=== PATIENT | male | born 1955 | race Caucasian/White ===

== ENCOUNTER → 2016-09-29 | Outpatient (CLI) | payer OTHER ==
[~2016-09-29] MED LIST: ACET300T2 PO; AMLO-110 PO; AMT50 PO; ASPI81TA28 PO; CLOP1TAB15 PO; CYCL10TA6 PO; METO25TA3 PO; NITRO SPRAY SL; ONDA4TAB10 SL; OXYC1TAB3 PO; RANI150T3 PO; ROSU20TA PO
== END | disposition home or self-care (01) ==
LOC: C.LABSPEC 17:49
PROVIDERS: ATTEND Urology
DX: N20.0 Calculus of kidney (principal)

== ENCOUNTER → 2016-11-29 | Outpatient (CLI) | payer OTHER ==
--- NOTE | 2016-11-29 10:24 | DIAGNOSTIC IMAGING REPORT ---
CHEST 2 VIEWS ROUTINE CLINICAL HISTORY: R93.8 nodule COMPARISON STUDY: 08/03/2015 FINDINGS: The bones soft tissues and hemidiaphragms are normal. The cardiomediastinal silhouette is normal. The lungs are clear. The pulmonary vasculature is normal. Benign calcified granuloma right base. IMPRESSION: Chronic change. No acute process. Electronically signed by: Ra Westbrook M.D. 11/29/2016 10:23 AM Dictated Date/Time: 11/29/2016 10:19 AM
== END | disposition home or self-care (01) ==
LOC: C.RAD 09:38
PROVIDERS: ATTEND Family Medicine
DX: R93.8 Abnormal findings on diagnostic imaging of other specified body structures (principal)

== ENCOUNTER → 2017-06-16 | Outpatient (CLI) | payer OTHER ==
[~2017-06-16] MED LIST changes: -ONDA4TAB10 SL; -OXYC1TAB3 PO
--- NOTE | 2017-06-16 12:43 | DIAGNOSTIC IMAGING REPORT ---
SACRUM COCCYX MIN 2 VIEWS CLINICAL HISTORY: Sacral pain. COMPARISON STUDY: CT of the abdomen and pelvis August 30, 2016. FINDINGS: Note is made of interspinous process spacers at the L3-L4 and L4-L5 levels. Sacroiliac joints are intact. There is no fracture or osseous lesion within the sacrum or coccyx. IMPRESSION: No acute fracture within the sacrum or coccyx. Electronically signed by: Chase Cain M.D. 06/16/2017 12:42 PM Dictated Date/Time: 06/16/2017 12:35 PM
--- NOTE | 2017-06-16 13:11 | DIAGNOSTIC IMAGING REPORT ---
LUMBAR SPINE 5 VIEWS CLINICAL HISTORY: Low back pain. FINDINGS: Five views of the lumbar spine are compared to study dated 04/20/2007. The skeletal structures are osteopenic. There is no radiographic evidence of fracture or malalignment. Vertebral body height and alignment are maintained throughout the lumbar spine. Postoperative change is seen involving the spinous processes from L3 to L5. The transverse processes are intact. There is no evidence of spondylolysis. Anterior osteophytes are seen throughout. Mild facet arthropathy is seen in the lower lumbar region. Mild multilevel degenerative disc space narrowing is noted. The bony pelvis is intact as imaged. There is atherosclerotic calcification of the abdominal aorta. No bowel obstruction is seen. Pelvic phleboliths are observed. IMPRESSION: 1. No acute bony abnormality is seen in the lumbar spine. 2. Osteopenia with postoperative and mild degenerative change as above. Dictated: 06/16/2017 12:43 PM Transcribed: 06/16/2017 1:11 PM Tami Electronically signed by: Shamir De La Rosa M.D. 06/16/2017 1:23 PM Dictated Date/Time: 06/16/2017 12:43 PM
== END | disposition home or self-care (01) ==
LOC: C.RAD1850 10:55
PROVIDERS: ATTEND Family Medicine
DX: M54.5 Low back pain (principal); M53.3 Sacrococcygeal disorders, not elsewhere classified; M85.88 Other specified disorders of bone density and structure, other site; M89.8X8 Other specified disorders of bone, other site; Z98.890 Other specified postprocedural states

== ENCOUNTER → 2017-08-23 | Outpatient (CLI) | payer OTHER | END | disposition home or self-care (01) | LOC: C.RDSM 12:00 | PROVIDERS: ATTEND Physical Medicine & Rehabilitation Sports Medicine | DX: S54.00XA Injury of ulnar nerve at forearm level, unspecified arm, initial encounter (principal); X58.XXXA Exposure to other specified factors, initial encounter ==

== ENCOUNTER 2019-04-13 10:22 | Inpatient (IN) ==
[2019-04-13] MEDS ORDERED: ONDANSETRON INJ 2 MG/ML 2 ML VIAL IV STA ×2 (10:48→12:45)
[2019-04-13] MEDS ORDERED: MoRPHine SULFATE 4 MG/ML 1 ML CARP\\VIAL IV STA ×4 (10:48→13:25)
[2019-04-13] MEDS ORDERED: SODIUM CHLORIDE 0.9% 1000ML 1,000 ML IV SCH (11:00)
[2019-04-13 11:02] LABS: Appearance Urine Clear (Clear); Bilirubin Urine Negative (Negative); Blood Urine Negative (Negative); Color Urine Yellow; Glucose Urine UA Negative (Negative); Ketones Urine Negative (Negative); Leukocyte Esterase Urine Negative (Negative); Nitrite Urine Negative (Negative); Protein Urine Negative (Negative); Specific Gravity Urine 1.014 (1.000-1.030); Urobilinogen Urine Negative (Negative); pH Urine 5.5 (4.5-7.5)
[2019-04-13 11:05] LABS: Basophils # (auto) 0.03 K/uL (0-0.2); Basophils % (auto) 0.2 %; Eosinophils # (auto) 0.06 K/uL (0-0.5); Eosinophils % (auto) 0.4 %; Hematocrit (blood only) 37.9 % (42-52); Hemoglobin 13.1 g/dL (14.0-18.0); Immature Granulocytes # (auto) 0.05 K/uL (0.00-0.02); Immature Granulocytes % (auto) 0.3 %; Lymphocytes # (auto) 1.02 K/uL (1.2-3.4); Lymphocytes % (auto) 6.2 %; Mean Corpuscular Hgb Conc 34.6 g/dL (32-36); Mean Corpuscular Volume 90.5 fL (80-100); Mean Platelet Volume 9.5 fL (7.4-10.4); Monocytes # (auto) 2.05 K/uL (0.11-0.59); Monocytes % (auto) 12.4 %; Neutrophils # (auto) 13.26 K/uL (1.4-6.5); Neutrophils % (auto) 80.5 %; Platelet Count 233 K/uL (130-400); RDW Coefficient of Variation 12.1 % (11.5-14.5); Red Blood Count 4.19 M/uL (4.7-6.1); White Blood Count 16.47 K/uL (4.8-10.8)
[2019-04-13 11:26] LABS: Alanine Aminotransferase 32 U/L (12-78); Albumin Level 4.1 gm/dl (3.4-5.0); Aspartate Aminotransferase 24 U/L (15-37); BUN Creatinine Ratio 17.5 (10-20); Blood Urea Nitrogen 17 mg/dl (7-18); Carbon Dioxide 26 mmol/L (21-32); Chloride 102 mmol/L (98-107); Est GFR (African American) 92.2; Est GFR (Non-African American) 79.6; Glucose 102 mg/dl (70-99); Potassium 3.7 mmol/L (3.5-5.1); Sodium 136 mmol/L (136-145)
[2019-04-13 11:29] LABS: Albumin Globulin Ratio 1.1 (0.9-2); Alkaline Phosphatase 86 U/L (45-117); Bilirubin,Total 0.8 mg/dl (0.2-1); Globulin 3.9 gm/dl (2.5-4.0)
[2019-04-13] MEDS ORDERED: IOVERSOL 100ml IV PRN (11:49)
--- NOTE | 2019-04-13 12:04 | CT Scan Report ---
ABDOMEN AND PELVIS CT WITH IV CONTRAST CT DOSE: 370.75 mGy.cm HISTORY: LLQ pain, no surgeries, h/o divert/kidney stone TECHNIQUE: Multiaxial CT images of the abdomen and pelvis were performed following the use of intrave nous contrast. A dose lowering technique was utilized adhering to the principles of ALARA. COMPARISON STUDY: Abdomen and pelvis CT 08/30/2016. FINDINGS: The lung bases are clear. No pneumoperitoneum. No pneumatosis. Small hiatus hernia. Old mil d superior endplate compression deformity at L4 remains unchanged. Interspinous device is seen at L3- L4 and L4-L5. The liver, gallbladder, adrenal glands, and spleen are unremarkable. Punctate bilateral renal calculi. There is 6 mm stone within the distal right ureter best seen on image 343. However, n o hydronephrosis. No retroperitoneal lymphadenopathy. Inflammatory change and mild edema surrounding the pancreatic tail. This is consistent with acute pancreatitis. No loculated fluid collections ident ified. Colonic diverticulosis. No evidence for diverticulitis. No bowel wall thickening or obstructio n. Normal appendix.. IMPRESSION: 1. Acute pancreatitis centered at the pancreatic tail. 2. A 6 mm nonobstructing stone within the distal right ureter. 3. Colonic diverticulosis. 4. Small hiatus hernia. Electronically signed by: Bill Redmond M.D. 04/13/2019 12:03 PM
[2019-04-13] MEDS ORDERED: SODIUM CHLORIDE 0.9% 500 ML IV SCH (12:45)
--- NOTE | 2019-04-13 13:03 | History & Physical Report ---
Date of Service April 13, 2019 Assessment & Plan (1) Acute pancreatitis: Patient has leukocytosis and pancreatic inflammation seen on CT scan of the abdomen pelvis. Patient be treated for possible acute pancreatitis. Etiologies are unclear at this time as he is not a significant alcohol user and there is no signs or symptoms of choledocholithiasis or gallstones of any kind. Patient will be given lactated Ringer's parenteral opiates and antiemetics and a clear liquid diet repeat laboratories in the morning (2) CAD (coronary artery disease): Patient be maintained on aspirin 81, metoprolol succinate 50 and amlodipine 5 he has had no recent unstable anginal symptoms and is been exerting himself in the summer he (3) HLD (hyperlipidemia): Patient is typical Zetia and Crestor will be on hold (4) DVT prophylaxis: Lovenox will be used for DVT prevention (5) Dysuria: Given the patient's dysuria earlier in the week urine culture will be sent as a possible examination for his leukocytosis (6) GERD (gastroesophageal reflux disease): Patient is maintained on Zantac (7) Chronic low back pain: Patient is prescription drug monitoring program was checked he typically gets a refill of his Tylenol 3 monthly at 120 pills/month he has been very regular with this although opiates can cause sphincter of Oddi spasm it usually associate with elevation of enzymes which she does not have History of Present Illness Primary Care Provider: Stalin Arrieta, 63-year-old male who presents to the ED with 3 and half days of abdominal pain crampy and left-sided. Patient has a history of kidney stones and diverticulosis and was fearful these were causing the problem. Patient has had no stools over the last 3 days. He said no vomiting but mild nausea and is had a decreased appetite. He said no fevers or chills. In the ER is found to have leukocytosis 16 and pancreatic tail inflammation on CT scan and there. There is no evidence of nephrolithiasis causing an issue (there is a kidney stone on the right not obstructing) and his diverticulosis does not look inflamed. Patient states he was working outside in the heat on Monday prior to admission he attempted to hydrate himself but after working out it flared up his chronic lumbar spine pain and he did have some dysuria and darkened urine which is since cleared. For his lumbar spinal stenosis he is previously had surgery he currently takes daily Tylenol 3 and he is scheduled for an injection in the coming weeks by pain management Patient does not feel he can bear his pain at home and is brought in for possible pancreatitis pain control and antiemetics Allergies Allergy/AdvReac Type Severity Reaction Status Date / Time pantoprazole [From Protonix] AdvReac Intermediate Nausea Unverified 04/13/19 11:03 tramadol AdvReac Intermediate nasuea Unverified 04/13/19 10:52 ibuprofen AdvReac Unknown UPSETS Verified 04/13/19 10:51 STOMACH NSAIDS (Non-Steroidal AdvReac Unknown conflicts Unverified 04/13/19 11:03 Anti-Inflamma with heart condition Home Medications Home Medications Medication Instructions Recorded Confirmed Type aspirin 81 mg PO PM #0 01/23/14 04/13/19 History amlodipine [Norvasc] 5 mg PO QAM #0 tab 08/03/15 04/13/19 History metoprolol succinate [Toprol XL] 50 mg PO PM #30 tab 08/03/15 04/13/19 History nitroglycerin [Nitrolingual] 400 mcg SUBLINGUAL DIRECTED PRN 08/03/15 04/13/19 History #0 acetaminophen-codeine 1 tab PO QID PRN #0 tab 08/30/16 04/13/19 History [Tylenol-Codeine #3] ranitidine HCl [Zantac Maximum 150 mg PO BID #0 tab 08/30/16 04/13/19 History Strength] coQ10 (ubiquinol) 200 mg PO PM 04/13/19 04/13/19 History ezetimibe 10 mg PO QAM 04/13/19 04/13/19 History rosuvastatin [Crestor] 5 mg PO HS 04/13/19 04/13/19 History Past Med/Surg History Medical History Chest pain (Acute) Lumbar stenosis with neurogenic claudication CAD (coronary artery disease) Diverticulitis HLD (hyperlipidemia) Kidney stone Surgical History History of angioplasty (Resolved) History of hernia repair (Resolved) S/P coronary artery stent placement Family History Other Family history non-contributory Social History Feels Safe at Home: Yes Smoking Status: Former smoker Review of Systems Review of Systems: ROS: well nourished well developed. No double vision blurry vision No problems with speech or swallowing No palpitations, chest pain or pressure No Wheezing or breathing issues Left-sided mid and lower quadrant abdominal pain worse with examination crampy dull radiating to his back No burning urine urine frequency or changes in color No focal joint pain or muscle pain No skin rashes or oral lesions No unusual bruising or bleeding Chronic daily back pain without numbness or loss of strength No changes in memory or confusion Physical Exam Physical Exam: The patient appeared well nourished and in moderate discomfort Vital signs as documented. Head exam is unremarkable. normocephalic, atraumatic Neck is without jugular venous distension, thyromegaly, or lymphademopathy Lungs are clear to auscultation and percussion. Cardiac exam reveals Rhythm is regular. First and second heart sounds normal. Abdominal exam reveals normal bowel sounds, no guarding no rebound tenderness to the left side examination of the right side radiates to the left side the pain is in the mid abdomen and he has some left CVA angle tenderness Extremities are nonedematous and both pedal pulses are present Neurologic exam is A&Ox3, no focal deficits, strength is equal bilateral Psychologically seems neither anxious or depressed Skin is warm Dry without bruises or lesions Results & Data Vital Signs (Past 12 Hours) Vital Signs Temp Pulse Pulse Resp BP BP Pulse Ox 04/13/19 12:56 72 20 104/61 96 04/13/19 12:31 72 20 114/66 96 04/13/19 11:29 62 16 114/69 99 04/13/19 11:00 62 20 110/78 99 04/13/19 10:59 62 20 99 04/13/19 10:28 36.6 C 68 20 120/[address] abd/pelvis with iv contrast: 1. Acute pancreatitis centered at the pancreatic tail. 2. A 6 mm nonobstructing stone within the distal right ureter. 3. Colonic diverticulosis. 4. Small hiatus hernia. PG Care Time/CCT Total # of Minutes Spent Total Time Spent with Patient: Total time spent is greater than 50% in coordination of care (as documented) at patient's floor/unit and/or counseling patient: (1) Acute pancreatitis Acute pancreatitis complication: no infection or necrosis Pancreatitis type: unspecified pancreatitis type Qualified Code(s): K85.90 - Acute pancreatitis without necrosis or infection, unspecified
--- NOTE | 2019-04-13 13:39 | Emergency Department Note ---
Entered by Daniel Mcnamara acting as a scribe for Daniel Major MD History of Present Illness General Chief complaint: GI Assessment Stated complaint: REF BY ABDOMINAL/BACK PAIN, BLOOD IN URINE Time Seen by Provider: 04/13/19 10:32 Source: patient History of Present Illness Provider complaint: Abdominal pain Onset (ago): day(s) 2 Location: abdomen Severity: similar to prior episodes Pain Consistency: + other (Waxing and waning) Maximum Pain Intensity: 7 Current Pain Intensity: 7 Relieved By: + none Exacerbated By: + none Associated symptoms: + other (Positive back pain) The patient is a 63 year old male w/ PMHx CAD, HTN, angioplasty, s/p coronary stents, spinal stenosis, kidney stone, diverticulitis and HLD who was referred by the [facility] walk-in clinic presenting to the ED w/ CC of waxing and waning abdominal pain, especially in the LLQ, that started about 2 days ago. The patient rates the pain as a 7/10 and notes nothing seems to make it better or worse. The patient states that he has not moved his bowels for the past 4 days and he is passing gas less than normal. Moreover, the patient has back pain that he notes is more severe than his typical chronic back pain. The patient does have a history of kidney stones and states his symptoms are starting to feel similar. During the past episode the patient was able to pass the stone without needing any procedures. He also mentioned that his urine sample he provided at the walk-in clinic did contain blood. The patient denies any recent trauma, rashes, or history of abdominal surgeries. The patient states that due to his cardiac history he takes daily Aspirin, but no other blood thinners. He sees Dr. Arteaga for cardiology. Home Medications Home Medications Medication Instructions Recorded Confirmed Type aspirin 81 mg PO PM #0 01/23/14 04/13/19 History amlodipine [Norvasc] 5 mg PO QAM #0 tab 08/03/15 04/13/19 History metoprolol succinate [Toprol XL] 50 mg PO PM #30 tab 08/03/15 04/13/19 History nitroglycerin [Nitrolingual] 400 mcg SUBLINGUAL DIRECTED PRN 08/03/15 04/13/19 History #0 acetaminophen-codeine 1 tab PO QID PRN #0 tab 08/30/16 04/13/19 History [Tylenol-Codeine #3] ranitidine HCl [Zantac Maximum 150 mg PO BID #0 tab 08/30/16 04/13/19 History Strength] coQ10 (ubiquinol) 200 mg PO PM 04/13/19 04/13/19 History ezetimibe 10 mg PO QAM 04/13/19 04/13/19 History rosuvastatin [Crestor] 5 mg PO HS 04/13/19 04/13/19 History Allergies Allergy/AdvReac Type Severity Reaction Status Date / Time pantoprazole [From Protonix] AdvReac Intermediate Nausea Unverified 04/13/19 11:03 tramadol AdvReac Intermediate nasuea Unverified 04/13/19 10:52 ibuprofen AdvReac Unknown UPSETS Verified 04/13/19 10:51 STOMACH NSAIDS (Non-Steroidal AdvReac Unknown conflicts Unverified 04/13/19 11:03 Anti-Inflamma with heart condition Past Med/Surg History Family History Other Family history non-contributory Social History Feels Safe at Home: Yes Smoking Status: Former smoker Review of Systems See HPI for pertinent positives & negatives. and A total of 10 systems reviewed and were otherwise negative Physical Exam Vital Signs Vital Signs - 24 hr 04/13/19 10:28 04/13/19 10:59 04/13/19 11:00 Temperature 36.6 C Temperature Source Oral Sepsis Recent Fever Within 48 Hours No Sepsis Action Taken by Nursing No Action Required Pulse Rate 68 62 Pulse Rate [Right Finger] 62 Respiratory Rate 20 20 20 Respiratory Effort / Characteristics Non-Labored Respiratory Depth Normal Normal Blood Pressure 120/63 Blood Pressure [Left Arm] 110/78 Blood Pressure Mean 82 Blood Pressure Mean [Left Arm] 88 Pulse Oximetry 100 99 99 Oxygen Delivery Method Room Air Room Air Room Air 04/13/19 11:29 04/13/19 12:31 04/13/19 12:56 Temperature Temperature Source Sepsis Recent Fever Within 48 Hours Sepsis Action Taken by Nursing Pulse Rate Pulse Rate [Right Finger] 62 72 72 Respiratory Rate 16 20 20 Respiratory Effort / Characteristics Respiratory Depth Normal Blood Pressure Blood Pressure [Left Arm] 114/69 114/66 104/61 Blood Pressure Mean Blood Pressure Mean [Left Arm] 84 82 75 Pulse Oximetry 99 96 96 Oxygen Delivery Method Room Air Room Air Room Air GENERAL: Mildly uncomfortable in appearance, well nourished, NAD, non-toxic. EYE EXAM: Normal conjunctiva. PERRL, no anisocoria and EOM's grossly intact w/o pain. OROPHARYNX: Moist mucus membranes. Grossly normal dentition. NECK: Supple, no nuchal rigidity, no adenopathy, non-tender. No signs of meningismus. LUNGS: Clear to auscultation. Normal chest wall mechanics. HEART: NSR, no MRG. ABDOMEN: Abdomen soft, LLQ pain, LLQ pain with palpation of the RLQ, negative obturator and psoas, normo-active bowel sounds, no masses, no rebound or guarding. BACK: No CVA TTP. SKIN: No rashes and no bruising. UPPER EXTREMITIES: Upper extremities are grossly normal. LOWER EXTREMITIES: No pitting edema. No calf pain. NEURO EXAM: A&O x3, cranial nerves II-XII grossly intact, normal speech, moves all 4 extremities on command w/o issue. Course 1042: Past medical records reviewed. The patient was evaluated in room C09, and a complete history and physical examination were performed. 1215: The patient is going to try drinking peter jannette to see if it exacerbated his abdominal pain. 1245: I reevaluated the patient after he had his peter jannette trial and he is still not feeling well. The patient has agreed to stay in the hospital for further testing and evaluation. 1258: I spoke to Dr. Dixon [facility] Hospitalist about the patient's case. He is going to accept the patient for further evaluation. Consultations Consultation #1: I spoke to Dr. Dixon [facility] Hospitalist about the patient's case. He is going to accept the patient for further evaluation. Time: 12:58 Administered Medications Sodium Chloride (Nss) 500 mls @ 125 mls/hr IV .Q4H SUSAN Stop: 05/13/19 12:44 Last Admin: 04/13/19 12:58 Dose: 125 mls/hr Documented by: [id number] Ioversol (Optiray 320 100ml) 92 ml IV ONCE PRN PRN Reason: Interaction Checking Stop: 04/17/19 11:48 Last Admin: 04/13/19 11:49 Dose: 92 ml Documented by: [id number] Discontinued Medications Sodium Chloride (Nss 1000ml) 1,000 mls @ 999 mls/hr IV .Q1H1M SUSAN Stop: 04/13/19 12:00 Last Infusion: 04/13/19 12:33 Dose: 0 mls/hr Documented by: [id number] Admin: 04/13/19 11:02 Dose: 999 mls/hr Documented by: [id number] Morphine Sulfate (Morphine Sulfate) 4 mg IV NOW STA Stop: 04/13/19 10:49 Last Admin: 04/13/19 11:01 Dose: 4 mg Documented by: [id number] Morphine Sulfate (Morphine Sulfate) 4 mg IV NOW STA Stop: 04/13/19 11:25 Last Admin: 04/13/19 11:28 Dose: 4 mg Documented by: [id number] Morphine Sulfate (Morphine Sulfate) 4 mg IV NOW STA Stop: 04/13/19 12:46 Last Admin: 04/13/19 12:58 Dose: 4 mg Documented by: [id number] Morphine Sulfate (Morphine Sulfate) 4 mg IV NOW STA Stop: 04/13/19 13:26 Last Admin: 04/13/19 13:36 Dose: 4 mg Documented by: [id number] Ondansetron HCl (Zofran) 4 mg IV NOW STA Stop: 04/13/19 10:49 Last Admin: 04/13/19 11:01 Dose: 4 mg Documented by: [id number] Ondansetron HCl (Zofran) 4 mg IV NOW STA Stop: 04/13/19 12:46 Last Admin: 04/13/19 12:57 Dose: 4 mg Documented by: [id number] Medical Decision Making Medical Records Attestation: I reviewed the patient's medical records. Home Medications Current Medication List: was personally reviewed by me Laboratory Data Attestation: I reviewed the patient's lab results. Result diagrams: 04/13/19 10:55 04/13/19 10:55 Lab Results 04/13/19 04/13/19 04/13/19 Range/Units 10:49 10:55 10:55 WBC 16.47 H (4.8-10.8) K/uL RBC 4.19 L (4.7-6.1) M/uL Hgb 13.1 L (14.0-18.0) g/dL Hct 37.9 L (42-52) % MCV 90.5 (80-100) fL MCH 31.3 (25-34) pg MCHC 34.6 (32-36) g/dL RDW Std Deviation 40.0 (36.4-46.3) fL RDW Coeff of Aakash 12.1 (11.5-14.5) % Plt Count 233 (130-400) K/uL MPV 9.5 (7.4-10.4) fL Immature Gran % (Auto) 0.3 % Neut % (Auto) 80.5 % Lymph % (Auto) 6.2 % Harvey % (Auto) 12.4 % Eos % (Auto) 0.4 % Baso % (Auto) 0.2 % Immature Gran # (Auto) 0.05 H (0.00-0.02) K/uL Neut # (Auto) 13.26 H (1.4-6.5) K/uL Lymph # (Auto) 1.02 L (1.2-3.4) K/uL Harvey # (Auto) 2.05 H (0.11-0.59) K/uL Eos # (Auto) 0.06 (0-0.5) K/uL Baso # (Auto) 0.03 (0-0.2) K/uL Sodium 136 (136-145) mmol/L Potassium 3.7 (3.5-5.1) mmol/L Chloride 102 (98-107) mmol/L Carbon Dioxide 26 (21-32) mmol/L Anion Gap 8.0 (3-11) BUN 17 (7-18) mg/dl Creatinine 0.99 (0.6-1.4) mg/dl Est Cr Clr Drug Dosing Not Reportable Est GFR ( Amer) 92.2 Est GFR (Non-Af Amer) 79.6 BUN/Creatinine Ratio 17.5 (10-20) Glucose 102 H (70-99) mg/dl Calcium 9.0 (8.5-10.1) mg/dl Total Bilirubin 0.8 (0.2-1) mg/dl AST 24 (15-37) U/L ALT 32 (12-78) U/L Alkaline Phosphatase 86 (45-117) U/L Total Protein 8.0 (6.4-8.2) gm/dl Albumin 4.1 (3.4-5.0) gm/dl Globulin 3.9 (2.5-4.0) gm/dl Albumin/Globulin Ratio 1.1 (0.9-2) Lipase 148 (73-393) U/L Urine Color Yellow Urine Appearance Clear (Clear) Urine pH 5.5 (4.5-7.5) Ur Specific [place] 1.014 (1.000-1.030) Urine Protein Negative (Negative) Urine Glucose (UA) Negative (Negative) Urine Ketones Negative (Negative) Urine Blood Negative (Negative) Urine Nitrite Negative (Negative) Urine Bilirubin Negative (Negative) Urine Urobilinogen Negative (Negative) Ur Leukocyte Esterase Negative (Negative) Imaging Data Radiologist's Impression: Radiology results as stated below per my review and the radiologist's interpretation: ABDOMEN AND PELVIS CT WITH IV CONTRAST CT DOSE: 370.75 mGy.cm HISTORY: LLQ pain, no surgeries, h/o divert/kidney stone TECHNIQUE: Multiaxial CT images of the abdomen and pelvis were performed following the use of intravenous contrast. A dose lowering technique was utilized adhering to the principles of ALARA. COMPARISON STUDY: Abdomen and pelvis CT 08/30/2016. FINDINGS: The lung bases are clear. No pneumoperitoneum. No pneumatosis. Small hiatus hernia. Old mild superior endplate compression deformity at L4 remains unchanged. Interspinous device is seen at L3-L4 and L4-L5. The liver, gallbladder, adrenal glands, and spleen are unremarkable. Punctate bilateral renal calculi. There is 6 mm stone within the distal right ureter best seen on image 343. However, no hydronephrosis. No retroperitoneal lymphadenopathy. Inflammatory change and mild edema surrounding the pancreatic tail. This is consistent with acute pancreatitis. No loculated fluid collections identified. Colonic diverticulosis. No evidence for diverticulitis. No bowel wall thickening or obstruction. Normal appendix.. IMPRESSION: 1. Acute pancreatitis centered at the pancreatic tail. 2. A 6 mm nonobstructing stone within the distal right ureter. 3. Colonic diverticulosis. 4. Small hiatus hernia. Electronically signed by: Bill Redmond M.D. 04/13/2019 12:03 PM Blood Pressure Blood Pressure Findings: Normal blood pressure MDM Narrative The patient is a 63 year old male w/ PMHx CAD, HTN, angioplasty, s/p coronary stents, spinal stenosis, kidney stone, diverticulitis and HLD who was referred by the [facility] walk-in clinic presenting to the ED w/ CC of waxing and waning abdominal pain, especially in the LLQ, that started about 2 days ago. Differential diagnoses includes but is not limited to gastritis, peptic ulcer disease, GERD, gallbladder disease, pancreatitis, small bowel obstruction, acute coronary syndrome, pericarditis, ischemic bowel, irritable bowel disease, irritable bowel syndrome, appendicitis, diverticulitis, malignancy, hernia, urinary tract infection, torsion, perforation, trauma, infectious. Patient was seen and evaluated the bedside. The patient was complaining some left sided lower abdominal pain. The patient does not have any right-sided abdominal pain. Patient did have questionable blood in urine as an outpatient and was referred here for further evaluation and treatment. The patient does not have any CVA tenderness palpation. The patient did have blood work completed which shows a mild white count. The patient CT does show concern for a nonobstructing left-sided stone that is close to the bladder. It is 6 mm but there is no hydro-. No evidence of blood or infection from the urine. The patient does have concern for possible pancreatitis. Upon reassessment the patient did have epigastric pain. I did discuss the possibility of p.o. trial as well as clear liquids. The patient did attempt this but the patient did have worsening pain and patient was supposed to travel to [place] tomorrow and does not believe that he would be able to do so given his current state. Given this I did discuss the patient with the on-call hospitalist who agreed to further evaluate treat the patient. Patient was admitted to the medicine service. Impression & Plan Acute pancreatitis, Ureterolithiasis, Abdominal pain Discharge Plan Visit Data Chief Complaint: GI Assessment Stated Complaint: REF BY ABDOMINAL/BACK PAIN, BLOOD IN URINE ED Provider: Daniel Major Discharge Problem: Acute pancreatitis, Ureterolithiasis, Abdominal pain Patient Disposition: Being Evaluated by Hospitalist Forms Stand Alone Forms: My [facility] [employer] Prescriptions Prescriptions: No Action aspirin 81 mg Tablet,Delayed Release (Dr/Ec) 81 mg PO PM Qty: 0 RF: 0 metoprolol succinate [Toprol XL] 50 mg Tablet Extended Release 24 Hr 50 mg PO PM Qty: 30 RF: 0 amlodipine [Norvasc] 5 mg Tablet 5 mg PO QAM Qty: 0 RF: 0 nitroglycerin [Nitrolingual] 400 mcg/spray [place],Non-Aerosol 400 mcg sublingual DIRECTED PRN (Reason: Chest Pain) Qty: 0 RF: 0 ranitidine HCl [Zantac Maximum Strength] 150 mg Tablet 150 mg PO BID Qty: 0 RF: 0 acetaminophen-codeine [Tylenol-Codeine #3] 300-30 mg Tablet 1 tab PO QID PRN (Reason: Pain) Qty: 0 RF: 0 ezetimibe 10 mg tablet 10 mg PO QAM RF: 0 rosuvastatin [Crestor] 5 mg tablet 5 mg PO HS RF: 0 coQ10 (ubiquinol) 200 mg Capsule 200 mg PO PM RF: 0 Referrals Referrals: Stalin Arrieta DO [Primary Care Provider] - Discharge Problem: Acute pancreatitis Qualifiers: Pancreatitis type: unspecified pancreatitis type Acute pancreatitis complication: no infection or necrosis Qualified Code(s): K85.90 - Acute pancreatitis without necrosis or infection, unspecified Abdominal pain Qualifiers: Abdominal location: left lower quadrant Qualified Code(s): R10.32 - Left lower quadrant pain The scribe's documentation has been prepared under my direction and personally reviewed by me in its entirety. I confirm that the note above accurately reflects all work, treatment, procedures, and medical decision making performed by me.
[2019-04-13] MEDS ORDERED: LORazepam 0.5 MG/1 ML VIAL IV PRN (14:43)
[2019-04-13] MEDS ORDERED: PROMETHAZINE HCL 12.5 MG in SODIUM CHLORIDE 0.9% 50 ML IV PRN (14:43)
[2019-04-13] MEDS ORDERED: MoRPHine SULFATE 4 MG/ML 1 ML CARP\\VIAL IV PRN (14:43)
[2019-04-13] MEDS ORDERED: MoRPHine SULFATE 2 MG/ML CARP IV PRN (14:43)
[2019-04-13] MEDS ORDERED: NITROGLYCERIN SL 0.4 MG/TAB TAB SL PRN (14:43)
[2019-04-13] MEDS ORDERED: HYDROmorphone INJ 0.5 MG/0.5 ML SYR IV STA (15:28)
[2019-04-13] MEDS ORDERED: HYDROmorphone INJ 1 MG/ML SYRINGE IV PRN (15:29)
[2019-04-13] MEDS ORDERED: HYDROmorphone INJ 0.5 MG/0.5 ML SYR IV PRN (15:29)
[2019-04-13 15:45] LABS: INR 1.1 (0.9-1.1)
[2019-04-13] MEDS: LACTATED RINGER'S 1,000 ML IV SCH ×2 (17:55→22:07)
[2019-04-13] MEDS: OXYCODONE HCL IR 5 MG TAB (IMMEDIATE RELEASE) PO PRN (17:56)
[2019-04-13] MEDS ORDERED: LACTATED RINGER'S 500 ML IV ONE (19:38)
[2019-04-13] MEDS: HYDROmorphone INJ 1 MG/ML SYRINGE IV PRN ×2 (20:31→23:54)
[2019-04-13] MEDS: METOPROLOL SUCC 50MG EXT REL TAB PO SCH (20:34)
[2019-04-13] MEDS: ASPIRIN 81 MG ECTAB PO SCH (20:36)
[2019-04-13] MEDS: ENOXAPARIN INJ 40 MG/0.4 ML SYR SQ SCH (21:08)
[2019-04-13] MEDS: ONDANSETRON INJ 2 MG/ML 2 ML VIAL IV PRN ×2 (22:51→22:52)
[2019-04-14] MEDS: HYDROmorphone INJ 1 MG/ML SYRINGE IV PRN ×3 (05:14→22:49)
[2019-04-14] MEDS: LACTATED RINGER'S 1,000 ML IV SCH ×3 (06:01→19:23)
[2019-04-14 06:47] LABS: Albumin Globulin Ratio 0.9 (0.9-2); Albumin Level 3.7 gm/dl (3.4-5.0); BUN Creatinine Ratio 11.3 (10-20); Calcium 8.9 mg/dl (8.5-10.1); Creatinine Clr Calc Pharmacy 73.5 ml/min; Est GFR (African American) 94.6; Est GFR (Non-African American) 81.6; Globulin 4.1 gm/dl (2.5-4.0); Potassium 3.5 mmol/L (3.5-5.1); Total Protein 7.8 gm/dl (6.4-8.2)
[2019-04-14] MEDS: OXYCODONE HCL IR 5 MG TAB (IMMEDIATE RELEASE) PO PRN ×2 (07:40→20:13)
[2019-04-14] MEDS: AMLODIPINE BESYLATE 5 MG TAB PO SCH (07:41)
[2019-04-14] MEDS: HYDROmorphone INJ 0.5 MG/0.5 ML SYR IV PRN ×2 (10:18→13:23)
[2019-04-14 11:21] LABS: Hematocrit (blood only) 35.8 % (42-52); Hemoglobin 12.2 g/dL (14.0-18.0); Mean Corpuscular Hgb Conc 34.1 g/dL (32-36); Mean Corpuscular Volume 92.5 fL (80-100); Mean Platelet Volume 10.3 fL (7.4-10.4); Platelet Count 233 K/uL (130-400); RDW Coefficient of Variation 12.2 % (11.5-14.5); RDW Standard Deviation 41.5 fL (36.4-46.3); Red Blood Count 3.87 M/uL (4.7-6.1); White Blood Count 17.18 K/uL (4.8-10.8)
[2019-04-14] MEDS ORDERED: POLYETHYLENE (MIRALAX) 17 GM PACK PO PRN (12:17)
--- NOTE | 2019-04-14 13:30 | Hospitalist Progress Note ---
Date of Service April 14, 2019 Assessment & Plan (1) Acute pancreatitis: - Presented with acute abdominal pain; has leukocytosis and acute pancreatitis noted at pancreatic tail but lipase level is WNL. - Does not drink ETOH at home; no evidence of gallstones. - CLD as tolerated; LR at 200 cc/hr. - GI consulted, may require EUS for further evaluation. - Oxycodone, Dilaudid, Tylenol #3 for pain control. - Monitor labs daily -- LFTs are WNL. (2) Leukocytosis: - Possibly related to pancreatitis vs. other. - Monitor CBC w/o diff qAM. (3) Right ureteral stone: - 6 mm nonobstructing stone within distal right ureter noted on CT A/P at admission. - U/a negative; UC is negative (prelim) - Will continue to monitor -- consider non-urgent urology consult on Monday. - Will start Flomax 0.4 mg daily; on IVF at 200 cc/hr. (4) Dysuria: - U/a and UC negative. - No indication for abx; dysuria now improving. (5) Anemia: - Hgb decreased since admission; will continue to monitor. - Consider iron studies for further evaluation. (6) CAD (coronary artery disease): - H/o angioplasty in the 's followed by stent placement 1-2 years ago; does not follow with group marketing vp at [facility], therefore we do not have records. - Continue home ASA 81 mg daily, Amlodipine 5 mg daily, Toprol XL 50 mg qPM as prescribed. - No cardiac symptoms present at this time. (7) HLD (hyperlipidemia): - Hold Zetia and Crestor (possible statin induced pancreatitis?) (8) GERD (gastroesophageal reflux disease): - Zantac BID. (9) Chronic low back pain: - Follows with pain management; on Tylenol #3 at home. - Has follow up with pain management for SI joint injection in near future. - Consider Sphincter of Oddi spasm. (10) Hiatal hernia: - Small hiatal hernia noted on CT. (11) DVT prophylaxis: - Lovenox daily. Dispo: Med/surg; discharge on 04/15/19 pending improvement in abd pain, GI consult and advancement of diet. Supervising Physician Co-Signing Physician Notes PA Supervision Note: I did not personally see or examine the patient today, but I verified all liang points of ERIKA Todd's assessment and plan with the following exceptions/additions: None Subjective Pt. feels well overall today. He did have nausea and mild abd pain this morning after eating breakfast but symptoms quickly resolved. Pain is located in the left side of his abdomen. He also has chronic low back pain, slightly increased since being admitted. Last BM was on Monday. Denies dysuria, hematuria, urinary retention. Review of Systems Review of Systems: All systems reviewed & are unremarkable except as noted in HPI & below Constitutional: no fever, no chills, no fatigue, no weakness and no anorexia Respiratory: no cough, no dyspnea, no dyspnea on exertion and no wheezing Cardiovascular: no chest pain, no palpitations and no edema Gastrointestinal: + abdominal pain, + nausea and + constipation; no vomiting and no diarrhea/loose stools Genitourinary: no dysuria, no difficulty urinating and no hematuria Musculoskeletal: + back pain (Chronic ); no joint pain Integumentary: no non-healing lesions Physical Exam Physical Exam: General: Resting comfortably HEENT: NC/AT; PERRLA with EOMI; [place] conjunctiva, MMM. No erythema of posterior pharynx Neck: Supple and nontender Cardiac: RRR Lungs: CTA bilaterally Abdomen: Bowel normoactive X 4; Tender to deep palpation over left abdomen. Extremities: Warm. No edema present Neuro: No focal weakness Skin: No rash Results & Data Vital Signs (Past 12 Hours) Vital Signs Temp Pulse Resp BP Pulse Ox 04/14/19 07:32 37.1 C 83 20 143/69 H 92 Laboratory Results 04/14/19 04/14/19 04/13/19 Range/Units 05:19 05:17 15:19 WBC 17.18 H (4.8-10.8) K/uL RBC 3.87 L (4.7-6.1) M/uL Hgb 12.2 L (14.0-18.0) g/dL Hct 35.8 L (42-52) % MCV 92.5 (80-100) fL MCH 31.5 (25-34) pg MCHC 34.1 (32-36) g/dL RDW Std Deviation 41.5 (36.4-46.3) fL RDW Coeff of Aakash 12.2 (11.5-14.5) % Plt Count 233 (130-400) K/uL MPV 10.3 (7.4-10.4) fL PT 11.0 (9.0-12.0) Seconds INR 1.1 (0.9-1.1) Sodium 137 (136-145) mmol/L Potassium 3.5 (3.5-5.1) mmol/L Chloride 102 (98-107) mmol/L Carbon Dioxide 27 (21-32) mmol/L Anion Gap 8.0 (3-11) BUN 11 (7-18) mg/dl Creatinine 0.97 (0.6-1.4) mg/dl Est Cr Clr Drug Dosing 73.5 ml/min Est GFR ( Amer) 94.6 Est GFR (Non-Af Amer) 81.6 BUN/Creatinine Ratio 11.3 (10-20) Glucose 93 (70-99) mg/dl Calcium 8.9 (8.5-10.1) mg/dl Total Bilirubin 1.0 (0.2-1) mg/dl AST 19 (15-37) U/L ALT 24 (12-78) U/L Alkaline Phosphatase 83 (45-117) U/L Total Protein 7.8 (6.4-8.2) gm/dl Albumin 3.7 (3.4-5.0) gm/dl Globulin 4.1 H (2.5-4.0) gm/dl Albumin/Globulin Ratio 0.9 (0.9-2) Lipase 63 L (73-393) U/L PG Care Time/CCT Total # of Minutes Spent Total Time Spent with Patient: Total time spent is greater than 50% in coordination of care (as documented) at patient's floor/unit and/or counseling patient: (1) Acute pancreatitis Acute pancreatitis complication: no infection or necrosis Pancreatitis type: unspecified pancreatitis type Qualified Code(s): K85.90 - Acute pancreatitis without necrosis or infection, unspecified
[2019-04-14] MEDS: DOCUSATE SODIUM/SENNA 50/8.6MG TAB PO SCH ×2 (13:33→20:13)
[2019-04-14] MEDS: TAMSULOSIN HCL 0.4 MG CAP PO SCH (13:33)
--- NOTE | 2019-04-14 14:47 | Gastrointestinal Consultation ---
Date of Consultation April 14, 2019 Assessment & Plan (1) Acute pancreatitis: Etiology not clear. CT did not comment on GB--check MRCP for gallstones as etiology. Check triglycerides. ETOH negative. Urine output is above 0.65 mg/kg/hour over the 0.5 mg/kg/hour suggested to make sure perfusion to pancreas adequate to reduce risk of necrotizing pancreatisis. Clears for now. LLQ pain--initially LUQ and tail of pancreas may be more left sided and not epigastric so suspect from pancreatitis--improving normocytic anemia--check B12, folate, ferritin, and Fe sat elevated WBC--presumably from pancreatitis--worse today but clinically better, continue to trend gerd--acid suppression constipation--laxative prn, may have sluggish gut from pancreatitis History of Present Illness Reason for Consultation: pancreatitis Requesting Physician: ERIKA Nicole Attending Physician: Angelina Garcia MD History of Present Illness CC abd pain HPI with patient for H and P. Pt states brother had pancreatitis twice but he does not know reason for it. Pt no history of pancreatiis. Reviewed [facility] EMR and noted EGD 12/05/1718 grade B esophagitis, small HH, no path done. Cable done 11/2017 3 mm rectal polyp path hyperplastic, sigmoid diverticulosisi and random colon path neg. Pt states he was working out in sun and thought was feeling poorly from that. However, he developed LUQ then setlling to L mid to LLQ pain persistent and came to ER. Also no bms for few days versus his normal daily BMs. CT a/p small HH, non obstructing right renal stone, diverticulosis, pancreatiis of tail of pancreas. LFTs and lipase normal. WBC elevated. Normocytic anemia noted. He denies black or bloody stools. Allergies Allergy/AdvReac Type Severity Reaction Status Date / Time pantoprazole [From Protonix] AdvReac Intermediate Nausea Unverified 04/13/19 11:03 tramadol AdvReac Intermediate nasuea Unverified 04/13/19 10:52 ibuprofen AdvReac Unknown UPSETS Verified 04/13/19 10:51 STOMACH NSAIDS (Non-Steroidal AdvReac Unknown conflicts Unverified 04/13/19 11:03 Anti-Inflamma with heart condition Home Medications Home Medications Medication Instructions Recorded Confirmed Type aspirin 81 mg PO PM #0 01/23/14 04/13/19 History amlodipine [Norvasc] 5 mg PO QAM #0 tab 08/03/15 04/13/19 History metoprolol succinate [Toprol XL] 50 mg PO PM #30 tab 08/03/15 04/13/19 History nitroglycerin [Nitrolingual] 400 mcg SUBLINGUAL DIRECTED PRN 08/03/15 04/13/19 History #0 acetaminophen-codeine 1 tab PO QID PRN #0 tab 08/30/16 04/13/19 History [Tylenol-Codeine #3] ranitidine HCl [Zantac Maximum 150 mg PO BID #0 tab 08/30/16 04/13/19 History Strength] coQ10 (ubiquinol) 200 mg PO PM 04/13/19 04/13/19 History ezetimibe 10 mg PO QAM 04/13/19 04/13/19 History rosuvastatin [Crestor] 5 mg PO HS 04/13/19 04/13/19 History Patient History Medical History Chest pain (Acute) Lumbar stenosis with neurogenic claudication CAD (coronary artery disease) Diverticulitis HLD (hyperlipidemia) Kidney stone Surgical History History of angioplasty (Resolved) History of hernia repair (Resolved) S/P coronary artery stent placement Family History Other Family history non-contributory Social History Preferred Language: Vietnamese Communication Ability: Effective 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 Beliefs That Will Affect Care: None Current Living Situation: Spouse and Family Other Information That Helps Us Care for You: No Feels Safe at Home: Yes Safety Concerns: Feels Safe At This Time Smoking Status: Former smoker Do You Dip or Chew Tobacco: No ; Smoking End Date: 1995 ; Second Hand Exposure: No ; Tobacco Cessation Education Requested by Patient: No Hx Alcohol Use: No Hx Substance Use: No Review of Systems Review of Systems: All systems reviewed & are unremarkable except as noted in HPI & below Physical Exam Constitutional: WD/WN, vitals as above Eyes: PERRL, conjunctivae normal, anicteric sclerae ENMT: external ear and nose normal, oropharynx normal Neck: normal visual inspection and trachea midline Respiratory: normal respiratory effort, lungs clear to auscultation Cardiovascular: RRR, no murmur, no edema Gastrointestinal (Abdomen): pos bs, soft, mild guarding L mid abd pain, no rebound Neurologic: PERRL, EOMI, accommodation nl, no face palsy, no dysarthria Psychiatric: A+Ox3, euthymic affect Results & Data Vital Signs (Past 12 Hours) Vital Signs Temp Pulse Resp BP Pulse Ox 04/14/19 07:32 37.1 C 83 20 143/69 H 92 (1) Acute pancreatitis Acute pancreatitis complication: no infection or necrosis Pancreatitis type: unspecified pancreatitis type Qualified Code(s): K85.90 - Acute pancreatitis without necrosis or infection, unspecified
[2019-04-14 15:01] LABS: Chol HDL Ratio 2; Cholesterol 123 mg/dl (0-200); HDL Cholesterol 58 mg/dl; LDL Cholesterol Calculated 50 mg/dl; Triglycerides 75 mg/dl (0-150); VLDL Cholesterol 15 mg/dl
[2019-04-14] MEDS: ACETAMINOPHEN W/CODEINE #3 1 TAB PO PRN (15:28)
[2019-04-14] MEDS: METOPROLOL SUCC 50MG EXT REL TAB PO SCH (20:12)
[2019-04-14] MEDS: ASPIRIN 81 MG ECTAB PO SCH (20:12)
[2019-04-14] MEDS: ONDANSETRON INJ 2 MG/ML 2 ML VIAL IV PRN (20:22)
[2019-04-14] MEDS: ENOXAPARIN INJ 40 MG/0.4 ML SYR SQ SCH (21:26)
[2019-04-15] MEDS: LACTATED RINGER'S 1,000 ML IV SCH ×5 (00:16→20:15)
[2019-04-15] MEDS: HYDROmorphone INJ 1 MG/ML SYRINGE IV PRN ×4 (04:10→16:44)
[2019-04-15] MEDS: OXYCODONE HCL IR 5 MG TAB (IMMEDIATE RELEASE) PO PRN ×2 (06:23→13:54)
[2019-04-15 06:34] LABS: Hematocrit (blood only) 32.9 % (42-52); Hemoglobin 11.1 g/dL (14.0-18.0); Mean Corpuscular Hgb Conc 33.7 g/dL (32-36); Mean Corpuscular Volume 91.9 fL (80-100); Mean Platelet Volume 9.3 fL (7.4-10.4); Platelet Count 180 K/uL (130-400); RDW Standard Deviation 40.9 fL (36.4-46.3); Red Blood Count 3.58 M/uL (4.7-6.1); White Blood Count 9.85 K/uL (4.8-10.8)
[2019-04-15 07:08] LABS: Albumin Globulin Ratio 0.8 (0.9-2); BUN Creatinine Ratio 9.7 (10-20); Bilirubin,Total 0.7 mg/dl (0.2-1); Calcium 8.4 mg/dl (8.5-10.1); Creatinine Clr Calc Pharmacy 89.1 ml/min; Est GFR (African American) 108.7; Est GFR (Non-African American) 93.7; Globulin 3.8 gm/dl (2.5-4.0); Potassium 3.6 mmol/L (3.5-5.1); Total Protein 6.8 gm/dl (6.4-8.2)
[2019-04-15 07:12] LABS: Ferritin 357.7 ng/ml (8-388)
--- NOTE | 2019-04-15 08:01 | Magnetic Resonance Report ---
MRCP CLINICAL HISTORY: Pancreatitis. COMPARISON STUDY: Abdominal CT dated 04/13/2019. TECHNIQUE: Abdominal MRCP is performed utilizing various T2-weighted sequences in the axial and coron al planes. IV contrast was not administered for this examination. 3-D reformats are created and asses sed. FINDINGS: The gallbladder is normal in appearance. No gallstones are identified. There is no intra- or extrahep atic biliary ductal dilatation. The common bile duct measures up to 4.5 mm in diameter. There are no filling defects to suggest choledocholithiasis. The pancreatic duct is normal in caliber. The unenhanced liver, spleen, adrenal glands, and kidneys are grossly normal. There is near-complete fatty atrophy of the pancreas. The distal pancreatic body and tail are edematous with surrounding inf lammatory change and trace fluid consistent with the reported history of acute pancreatitis. No organ ized peripancreatic fluid collection is identified. There is no evidence of bowel obstruction. There is a moderate hiatal hernia. Trace pleural effusions are identified, left larger than right. The visu alized bony structures show no acute abnormality. IMPRESSION: 1. Normal MRCP. 2. No gallstones are identified and there is no evidence of choledocholithiasis. 3. Findings are consistent with pancreatitis involving the distal pancreatic body and tail. Dictated: 04/15/2019 7:30 AM Transcribed: 04/15/2019 7:43 AM Didi [id number] [email or web address] Electronically signed by: Shamir De La Rosa M.D. 04/15/2019 8:00 AM
[2019-04-15] MEDS: DOCUSATE SODIUM/SENNA 50/8.6MG TAB PO SCH ×2 (08:36→20:09)
[2019-04-15] MEDS: TAMSULOSIN HCL 0.4 MG CAP PO SCH (08:36)
[2019-04-15] MEDS: AMLODIPINE BESYLATE 5 MG TAB PO SCH (08:36)
[2019-04-15 09:06] LABS: Folate (Folic Acid) 15.04 ng/ml (>5.38)
--- NOTE | 2019-04-15 14:43 | Hospitalist Progress Note ---
Date of Service April 15, 2019 Assessment & Plan (1) Acute pancreatitis: - Presented with acute abdominal pain; has leukocytosis and acute pancreatitis noted at pancreatic tail but lipase remains normal - Does not drink ETOH at home; no evidence of gallstones. - CLD as tolerated; LR at 200 cc/hr. MRCP does not show any gallbladder or common bile duct disease or retained stones and only inflammation in the pancreatic tail as noted earlier - GI consulted, may require EUS for further evaluation. - Oxycodone, Dilaudid, Tylenol #3 for pain control. -LFTs remain in normal limits (2) Leukocytosis: - Possibly related to pancreatitis vs. other. - Monitor CBC w/o diff qAM. (3) Right ureteral stone: - 6 mm nonobstructing stone within distal right ureter noted on CT A/P at admission. - U/a negative; UC is negative (prelim) Pain does not appear to be in the geographic location for this nonobstructing stone -Started on Flomax 0.4 mg daily; on IVF at 200 cc/hr. (4) Dysuria: - U/a and UC negative. - No indication for abx; dysuria now improving. (5) Anemia: - Hgb decreased since admission; hemoglobin 11 g range - Consider iron studies for further evaluation. (6) CAD (coronary artery disease): - H/o angioplasty in the s followed by stent placement 1-2 years ago; does not follow with [facility] at [facility], therefore we do not have records. - Continue home ASA 81 mg daily, Amlodipine 5 mg daily, Toprol XL 50 mg qPM as prescribed. - No cardiac symptoms present at this time. (7) HLD (hyperlipidemia): - Hold Zetia and Crestor (possible statin induced pancreatitis?) (8) GERD (gastroesophageal reflux disease): - Zantac BID. (9) Chronic low back pain: - Follows with pain management; on Tylenol #3 at home. - Has follow up with pain management for SI joint injection in near future. - Consider Sphincter of Oddi spasm. (10) Hiatal hernia: - Small hiatal hernia noted on CT. (11) DVT prophylaxis: - Lovenox daily. Patient unable to tolerate advancement of diet Subjective Patient has persistent postprandial left upper quadrant pain usually happens fairly medially after he eats this can be intense at times and is not reliable and can happen 2 or 3 meals but then one meal nothing. The patient still on clear liquid diet. Patient had MRCP this morning results were relayed to the patient and his at the bedside. I have a message into [facility] gastroenterology to discuss his case further once he arrived in the hospital Review of Systems Review of Systems: ROS: well nourished well developed. No double vision blurry vision No problems with speech or swallowing No palpitations, chest pain or pressure No Wheezing or breathing issues Left upper quadrant significant abdominal pain without nausea vomiting No burning urine urine frequency or changes in color No focal joint pain or muscle pain No skin rashes or oral lesions No unusual bruising or bleeding No focused back pain or numbness or loss of strength No changes in memory or confusion Physical Exam Physical Exam: The patient appeared well nourished and normally developed. Only mild to moderate pain Vital signs as documented. Head exam is unremarkable. normocephalic, atraumatic Neck is without jugular venous distension, thyromegaly, or lymphademopathy Lungs are clear to auscultation and percussion. Cardiac exam reveals Rhythm is regular. First and second heart sounds normal. Abdominal exam reveals normal bowel sounds, reproducible tenderness to the left upper quadrant not as intense as his postprandial tenderness Extremities are nonedematous and both pedal pulses are present Neurologic exam is A&Ox3, no focal deficits, strength is equal bilateral Psychologically seems neither anxious or depressed Skin is warm Dry without bruises or lesions Results & Data Vital Signs (Past 12 Hours) Vital Signs Temp Pulse Resp BP Pulse Ox 04/15/19 07:10 37.1 C 81 16 113/64 90 PG Care Time/CCT Total # of Minutes Spent Total Time Spent with Patient: Total time spent is greater than 50% in coordination of care (as documented) at patient's floor/unit and/or counseling patient: (1) Acute pancreatitis Acute pancreatitis complication: no infection or necrosis Pancreatitis type: unspecified pancreatitis type Qualified Code(s): K85.90 - Acute pancreatitis without necrosis or infection, unspecified
[2019-04-15] MEDS: ONDANSETRON INJ 2 MG/ML 2 ML VIAL IV PRN (19:42)
[2019-04-15] MEDS: HYDROmorphone INJ 0.5 MG/0.5 ML SYR IV PRN (19:43)
[2019-04-15] MEDS: ASPIRIN 81 MG ECTAB PO SCH (20:09)
[2019-04-15] MEDS: METOPROLOL SUCC 50MG EXT REL TAB PO SCH (20:12)
[2019-04-15] MEDS: ENOXAPARIN INJ 40 MG/0.4 ML SYR SQ SCH (20:14)
--- NOTE | 2019-04-15 20:35 | Progress Note ---
DATE: 04/15/2019 HISTORY OF PRESENT ILLNESS: The patient continues to have left upper quadrant pain. His MRCP today showed inflammation and tail of the pancreas, but the remainder of the pancreas was normal. There was no biliary dilatation, stones or evidence of gallbladder disease. Interestingly, his lipase is normal and he has signs of iron deficiency. He has had no change in bowels or visible blood in his stool and he had an EGD and colonoscopy a year ago by Dr. Valenzuela and other than a couple of small polyps that were removed in his colon. No other abnormalities were found. PHYSICAL EXAMINATION: GENERAL: The patient is awake, alert and eating clear liquids. IMPRESSION: I spoke with Dr. Dixon today and we decided to proceed with endoscopic ultrasound to better define his pancreas to make sure there is some underlying lesion predisposing him to the pancreatitis. In addition, we will get a tissue transglutaminase to screen for celiac disease due to his iron deficiency.
[2019-04-16] MEDS: LACTATED RINGER'S 1,000 ML IV SCH ×4 (01:19→16:30)
[2019-04-16] MEDS: HYDROmorphone INJ 0.5 MG/0.5 ML SYR IV PRN ×3 (06:36→13:59)
[2019-04-16] MEDS: TAMSULOSIN HCL 0.4 MG CAP PO SCH (08:16)
[2019-04-16] MEDS: DOCUSATE SODIUM/SENNA 50/8.6MG TAB PO SCH ×2 (08:17→20:09)
[2019-04-16] MEDS: AMLODIPINE BESYLATE 5 MG TAB PO SCH (08:17)
[2019-04-16] MEDS: OXYCODONE HCL IR 5 MG TAB (IMMEDIATE RELEASE) PO PRN ×2 (08:24→20:07)
--- NOTE | 2019-04-16 12:14 | Gastrointestinal Consultation ---
Date of Consultation April 16, 2019 Assessment & Plan (1) Acute pancreatitis: Pt is a 63 y/o male currently admitted with L sided abd pain radiating to R, CT and MRCP showed signs of acute pancreatitis in body and tail region. His LFTs and Lipase interestingly were normal. Pancreatitis diagnosed via CT and MRCP. No signs of gallstones/choledocholithiasis or biliary ductal dilation on imaging studies. He denies ETOH, tobacco, illicit drugs. TG level 75. ? etiology, perhaps drug induced (Zetia). - May start CL diet - Relistor 12mcg subQ x 1 dose for constipation, continue Senokot 1tab BID - IVF LR @ 200ml/hr, decrease rate if maintaining PO intake - Recommend EUS eval in 4-6 week's time. Pt and would like to consider options of having this done at [facility] vs Locally by [facility] GI Attg add: I interviewed and examined pt, reviewed chart and labs. Pt with no l ipase/LFT elevation, RUQ pain, imaging showing focal panc of tail Would defer management of pancreatitis to hospitalist team - agree with adv diet, decr fluids. Plan outpt EUS, w/u for hereditary panc as oupt. Please call with questions. History of Present Illness Reason for Consultation: Eval for possible EUS, pancreatitis Requesting Physician: Dr. Shree Dixon Attending Physician: Dr. Eber Walker History of Present Illness Pt is a 63 y/o male, currently admitted for pancreatitis. He had presented about 3 days ago with c/o L sided abd pain radiating across mid section to R side. Said was working outside and may have been dehydrated. [place] weak, a bit nauseated but no vomiting. Urine slightly dark but clearing up since he was given IVF. He had hx of kidney stone but denies any dysuria, hematuria. Was having increased bloating and some constipation, no BM since about a week now. CT and MRCP imaging studies showed signs of distal pancreatic body and tail inflammation & edema suggestive of pancreatitis. No signs of gallstones or choledocholithiasis, biliary dilation. His LFTs and Lipase were normal. He denies ETOH, tobacco, illicit drugs. He did start new med: Zetia in September. Triglycerides 75. Brother w hx of pancreatitis but unknown etiology. He was previously followed by [facility] (Dr. Guerrero & Miki). Recommended to have EUS evaluation and [facility] GI was consulted to provide this. Allergies Allergy/AdvReac Type Severity Reaction Status Date / Time pantoprazole [From Protonix] AdvReac Intermediate Nausea Unverified 04/13/19 11:03 tramadol AdvReac Intermediate nasuea Unverified 04/13/19 10:52 ibuprofen AdvReac Unknown UPSETS Verified 04/13/19 10:51 STOMACH NSAIDS (Non-Steroidal AdvReac Unknown conflicts Unverified 04/13/19 11:03 Anti-Inflamma with heart condition Home Medications Home Medications Medication Instructions Recorded Confirmed Type aspirin 81 mg PO PM #0 01/23/14 04/13/19 History amlodipine [Norvasc] 5 mg PO QAM #0 tab 08/03/15 04/13/19 History metoprolol succinate [Toprol XL] 50 mg PO PM #30 tab 08/03/15 04/13/19 History nitroglycerin [Nitrolingual] 400 mcg SUBLINGUAL DIRECTED PRN 08/03/15 04/13/19 History #0 acetaminophen-codeine 1 tab PO QID PRN #0 tab 08/30/16 04/13/19 History [Tylenol-Codeine #3] ranitidine HCl [Zantac Maximum 150 mg PO BID #0 tab 08/30/16 04/13/19 History Strength] coQ10 (ubiquinol) 200 mg PO PM 04/13/19 04/13/19 History ezetimibe 10 mg PO QAM 04/13/19 04/13/19 History rosuvastatin [Crestor] 5 mg PO HS 04/13/19 04/13/19 History Patient History Medical History Chest pain (Acute) Lumbar stenosis with neurogenic claudication CAD (coronary artery disease) Diverticulitis HLD (hyperlipidemia) Kidney stone Surgical History History of angioplasty (Resolved) History of hernia repair (Resolved) S/P coronary artery stent placement Family History Other Family history non-contributory Social History Preferred Language: Italian Communication Ability: Effective 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 Beliefs That Will Affect Care: None Current Living Situation: Spouse and Family Other Information That Helps Us Care for You: No Feels Safe at Home: Yes Safety Concerns: Feels Safe At This Time Smoking Status: Former smoker Do You Dip or Chew Tobacco: No ; Smoking End Date: 1995 ; Second Hand Exposure: No ; Tobacco Cessation Education Requested by Patient: No Hx Alcohol Use: No Hx Substance Use: No Review of Systems Review of Systems: All systems reviewed & are unremarkable except as noted in HPI & below Physical Exam Constitutional: WD/WN, vitals as above well groomed, cooperative and comfortable Eyes: PERRL, conjunctivae normal, anicteric sclerae ENMT: external ear and nose normal, oropharynx normal Respiratory: normal respiratory effort, lungs clear to auscultation Cardiovascular: RRR, no murmur, no edema Gastrointestinal (Abdomen): Inspection/Auscultation: + abdomen distended (mild) and + hypoactive bowel sounds Percussion/Palpation: + abdomen tender (along L side of abd, RLQ ) Skin: no rashes, warm and dry no jaundice Neurologic: Motor/Sensory: no asterixis Psychiatric: A+Ox3, euthymic affect Lymphatic: no lymphedema Results & Data Vital Signs (Past 12 Hours) Vital Signs Temp Pulse Resp BP Pulse Ox 04/16/19 07:10 37.2 C 79 18 112/62 90 (1) Acute pancreatitis Acute pancreatitis complication: no infection or necrosis Pancreatitis type: unspecified pancreatitis type Qualified Code(s): K85.90 - Acute pancreatitis without necrosis or infection, unspecified
[2019-04-16] MEDS ORDERED: METHYLNALTREXONE BROMIDE 12 MG/0.6 ML VIAL SQ ONE (13:00)
--- NOTE | 2019-04-16 14:24 | Urology Consultation ---
Date of Consultation April 16, 2019 Assessment & Plan (1) Right ureteral stone: 6mm distal right ureteral stone without hydronephrosis. No right flank or abdominal pain. Patient does not have any CVA tenderness, UA & UC&S are clear. No urinary changes or bother. Cr WNL. Discussed with patient. Discussed high likelihood of spontaneous passage of stone given size and distal position. Will arrange outpatient follow up with our service for continued outpatient management. Thank you for allowing us to participate in the inpatient care of Mr. Busby. Please contact our service if we can be of further assistance during hospitalization. History of Present Illness Attending Physician: Shree Dixon MD History of Present Illness 63 YO male with abdominal pain, hx of kidney stones. Reports worsening left upper quadrant/epigastric pain, reported to ER for evaluation, and was admitted for suspected pancreatitis. His CT scan is reviewed and demonstrates a 6mm stone in his distal right ureter without hydronephrosis. His UA is clear and UC&S negative. Cr WNL. Patient was last evaluated by our service in 2016, when he saw Dr. Sandy for a kidney stone that spontaneously passed. Patient reports feeling okay today. Continued LUQ and epigastric discomfort. No flank/groin pain. Has not noticed any urinary changes or bother. Urine is clear yellow. No hematuria. No fevers/chills. Is intermittently nauseated. Allergies Allergy/AdvReac Type Severity Reaction Status Date / Time pantoprazole [From Protonix] AdvReac Intermediate Nausea Unverified 04/13/19 11:03 tramadol AdvReac Intermediate nasuea Unverified 04/13/19 10:52 ibuprofen AdvReac Unknown UPSETS Verified 04/13/19 10:51 STOMACH NSAIDS (Non-Steroidal AdvReac Unknown conflicts Unverified 04/13/19 11:03 Anti-Inflamma with heart condition Home Medications Home Medications Medication Instructions Recorded Confirmed Type aspirin 81 mg PO PM #0 01/23/14 04/13/19 History amlodipine [Norvasc] 5 mg PO QAM #0 tab 08/03/15 04/13/19 History metoprolol succinate [Toprol XL] 50 mg PO PM #30 tab 08/03/15 04/13/19 History nitroglycerin [Nitrolingual] 400 mcg SUBLINGUAL DIRECTED PRN 08/03/15 04/13/19 History #0 acetaminophen-codeine 1 tab PO QID PRN #0 tab 08/30/16 04/13/19 History [Tylenol-Codeine #3] ranitidine HCl [Zantac Maximum 150 mg PO BID #0 tab 08/30/16 04/13/19 History Strength] coQ10 (ubiquinol) 200 mg PO PM 04/13/19 04/13/19 History ezetimibe 10 mg PO QAM 04/13/19 04/13/19 History rosuvastatin [Crestor] 5 mg PO HS 04/13/19 04/13/19 History Patient History Medical History Chest pain (Acute) Lumbar stenosis with neurogenic claudication CAD (coronary artery disease) Diverticulitis HLD (hyperlipidemia) Kidney stone Surgical History History of angioplasty (Resolved) History of hernia repair (Resolved) S/P coronary artery stent placement Family History Other Family history non-contributory Social History Preferred Language: French Communication Ability: Effective 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 Beliefs That Will Affect Care: None Current Living Situation: Spouse and Family Other Information That Helps Us Care for You: No Feels Safe at Home: Yes Safety Concerns: Feels Safe At This Time Smoking Status: Former smoker Do You Dip or Chew Tobacco: No ; Smoking End Date: 1995 ; Second Hand Exposure: No ; Tobacco Cessation Education Requested by Patient: No Hx Alcohol Use: No Hx Substance Use: No Review of Systems Constitutional: + fatigue; no fever and no chills Eyes: no worsening vision Ear, Nose, Mouth, Throat: no hearing loss Respiratory: no dyspnea Cardiovascular: no chest pain Gastrointestinal: + abdominal pain, + nausea and + constipation; no vomiting Genitourinary: no dysuria, no difficulty urinating, no hematuria, no flank pain and no genital pain Musculoskeletal: no back pain Neurologic: no confusion Psychiatric: no problem reported Endocrine: + fatigue Physical Exam Constitutional: WD/WN, vitals as above ENMT: Ears: no hearing impairment Neck: normal visual inspection Respiratory: normal respiratory effort; does not use accessory muscles Cardiovascular: Vessels: no JVD Gastrointestinal (Abdomen): Inspection/Auscultation: abdomen not distended Percussion/Palpation: + abdomen tender (LUQ, epigastric) and abdomen soft Psychiatric: A+Ox3, euthymic affect Genitourinary: bladder normal to palpation; no CVA tenderness Results & Data Vital Signs (Past 12 Hours) Vital Signs Temp Pulse Resp BP Pulse Ox 04/16/19 07:10 37.2 C 79 18 112/62 90
--- NOTE | 2019-04-16 14:42 | Hospitalist Progress Note ---
Date of Service April 16, 2019 Assessment & Plan (1) Acute pancreatitis: - Presented with acute abdominal pain; has leukocytosis and acute pancreatitis noted at pancreatic tail but lipase remains normal - Does not drink ETOH at home; no evidence of gallstones. - CLD as tolerated; LR at 200 cc/hr. MRCP does not show any gallbladder or common bile duct disease or retained stones and only inflammation in the pancreatic tail as noted earlier - GI consulted, recommends improving bowel function given a dose of Relistor continue Senokot reduce IV fluids commend endoscopic ultrasound in 4 to 6 weeks as an outpatient once tolerating diet - Oxycodone, Dilaudid, Tylenol #3 for pain control. Laboratory studies remain normal (2) Leukocytosis: - Possibly related to pancreatitis vs. other. (3) Right ureteral stone: - 6 mm nonobstructing stone within distal right ureter noted on CT A/P at admission. - U/a negative; UC is negative (prelim) Pain does not appear to be in the geographic location for this nonobstructing stone -Started on Flomax 0.4 mg daily; on IVF of urology's opinion (4) Dysuria: - U/a and UC negative. - No indication for abx; dysuria now improving. (5) Anemia: - Hgb decreased since admission; hemoglobin 11 g range Patient is extremely low iron low transferrin saturation was taking p.o. will recommend augmenting iron intake Last colonoscopy was November 2017 showing a 3 mm rectal polyp that was path hyperplastic with pathology sigmoid diverticulosis random colonic path samples negative (6) CAD (coronary artery disease): - H/o angioplasty in the s followed by stent placement 1-2 years ago; does not follow with bedspread inspector at [facility], therefore we do not have records. - Continue home ASA 81 mg daily, Amlodipine 5 mg daily, Toprol XL 50 mg qPM as prescribed. - No cardiac symptoms present at this time. (7) HLD (hyperlipidemia): - Hold Zetia and Crestor (possible statin induced pancreatitis?) (8) GERD (gastroesophageal reflux disease): - Zantac BID. (9) Chronic low back pain: - Follows with pain management; on Tylenol #3 at home. - Has follow up with pain management for SI joint injection in near future. (10) Hiatal hernia: - Small hiatal hernia noted on CT. (11) DVT prophylaxis: - Lovenox daily. Reattempting clear liquid diet will try to advance as tolerated Subjective Patient still with occasional postprandial pain did see [facility] which recommended improving stool function restarting clear liquid diet and outpatient EUS to try to avoid inflammation on exam to get a better look at the parenchyma of the pancreas. Subsequently he was given a dose of Relistor is lactated Ringer's to be reduced to 100 and he will continue on his bowel regimen of Senokot. Review of Systems Review of Systems: ROS: well nourished well developed. No double vision blurry vision No problems with speech or swallowing No palpitations, chest pain or pressure No Wheezing or breathing issues Persists with left-sided upper quadrant abdominal pain sometimes postprandially not associated with vomiting or diarrhea No burning urine urine frequency or changes in color No focal joint pain or muscle pain No skin rashes or oral lesions No unusual bruising or bleeding No focused back pain or numbness or loss of strength No changes in memory or confusion Physical Exam Physical Exam: The patient appeared well nourished and normally developed. Vital signs as documented. Head exam is unremarkable. normocephalic, atraumatic Neck is without jugular venous distension, thyromegaly, or lymphademopathy Lungs are clear to auscultation and percussion. Cardiac exam reveals Rhythm is regular. First and second heart sounds normal. Abdominal exam reveals normal bowel sounds, pain is lessened from presentation was still present left upper quadrant no CVA angle pain at this time Extremities are nonedematous and both pedal pulses are present Neurologic exam is A&Ox3, no focal deficits, strength is equal bilateral Psychologically seems neither anxious or depressed Skin is warm Dry without bruises or lesions Results & Data Vital Signs (Past 12 Hours) Vital Signs Temp Pulse Resp BP Pulse Ox 04/16/19 07:10 37.2 C 79 18 112/62 90 PG Care Time/CCT Total # of Minutes Spent Total Time Spent with Patient: Total time spent is greater than 50% in coordination of care (as documented) at patient's floor/unit and/or counseling patient: (1) Acute pancreatitis Acute pancreatitis complication: no infection or necrosis Pancreatitis type: unspecified pancreatitis type Qualified Code(s): K85.90 - Acute pancreatitis without necrosis or infection, unspecified
[2019-04-16] MEDS: ASPIRIN 81 MG ECTAB PO SCH (20:08)
[2019-04-16] MEDS: METOPROLOL SUCC 50MG EXT REL TAB PO SCH (20:09)
[2019-04-16] MEDS: ENOXAPARIN INJ 40 MG/0.4 ML SYR SQ SCH (21:29)
[2019-04-17] MEDS: LACTATED RINGER'S 1,000 ML IV SCH ×2 (00:25→11:36)
[2019-04-17 05:50] LABS: Hematocrit (blood only) 31.4 % (42-52); Hemoglobin 10.6 g/dL (14.0-18.0); Mean Corpuscular Hgb Conc 33.8 g/dL (32-36); Mean Corpuscular Volume 90.5 fL (80-100); Mean Platelet Volume 8.9 fL (7.4-10.4); Platelet Count 244 K/uL (130-400); RDW Standard Deviation 39.7 fL (36.4-46.3); Red Blood Count 3.47 M/uL (4.7-6.1); White Blood Count 6.38 K/uL (4.8-10.8)
[2019-04-17] MEDS: AMLODIPINE BESYLATE 5 MG TAB PO SCH (08:00)
[2019-04-17] MEDS: TAMSULOSIN HCL 0.4 MG CAP PO SCH (08:00)
[2019-04-17] MEDS: DOCUSATE SODIUM/SENNA 50/8.6MG TAB PO SCH (08:03)
[2019-04-17] MEDS: ACETAMINOPHEN W/CODEINE #3 1 TAB PO PRN ×2 (08:03→11:37)
--- NOTE | 2019-04-17 08:44 | History & Physical Bridge Note ---
Date of Service April 17, 2019 History & Physical Bridge Note I have examined the patient, reviewed the History & Physical and in the interval since the performance of the History & Physical I have noted the following changes of clinical significance: no changes noted GI short note: I followed up with pt today, he decided to have EUS done at [facility]. He is otherwise feeling well, wondering if he could be DC'd and also wants more solid foods. Passed BM. OK for diet advanced. I will let Dr. Sebas Livingston ([facility]) know if pt's decision to help set up EUS at [facility] in 4-6 week's time
--- NOTE | 2019-04-22 07:52 | Discharge Summary ---
Date of Service April 17, 2019 Admission HPI Per Admitting Provider 63-year-old male who presents to the ED with 3 and half days of abdominal pain crampy and left-sided. Patient has a history of kidney stones and diverticulosis and was fearful these were causing the problem. Patient has had no stools over the last 3 days. He said no vomiting but mild nausea and is had a decreased appetite. He said no fevers or chills. In the ER is found to have leukocytosis 16 and pancreatic tail inflammation on CT scan and there. There is no evidence of nephrolithiasis causing an issue (there is a kidney stone on the right not obstructing) and his diverticulosis does not look inflamed. Patient states he was working outside in the heat on Monday prior to admission he attempted to hydrate himself but after working out it flared up his chronic lumbar spine pain and he did have some dysuria and darkened urine which is since cleared. For his lumbar spinal stenosis he is previously had surgery he currently takes daily Tylenol 3 and he is scheduled for an injection in the coming weeks by pain management Patient does not feel he can bear his pain at home and is brought in for possible pancreatitis pain control and antiemetics Principal Diagnosis Acute pancreatitis (idiopathic) Discharge Exam The patient appeared well nourished and normally developed. Vital signs as documented. Head exam is unremarkable. normocephalic, atraumatic Neck is without jugular venous distension, thyromegaly, or lymphademopathy Lungs are clear to auscultation and percussion. Cardiac exam reveals Rhythm is regular. First and second heart sounds normal. Abdominal exam reveals normal bowel sounds, nontender, no CVA angle pain at this time Extremities are nonedematous and both pedal pulses are present Neurologic exam is A&Ox3, no focal deficits, strength is equal bilateral Psychologically seems neither anxious or depressed Skin is warm Dry without bruises or lesions Discharge Data Allergies Allergy/AdvReac Type Severity Reaction Status Date / Time pantoprazole [From Protonix] AdvReac Intermediate Nausea Unverified 04/13/19 11:03 tramadol AdvReac Intermediate nasuea Unverified 04/13/19 10:52 ibuprofen AdvReac Unknown UPSETS Verified 04/13/19 10:51 STOMACH NSAIDS (Non-Steroidal AdvReac Unknown conflicts Unverified 04/13/19 11:03 Anti-Inflamma with heart condition Consultations 04/13/19 13:01 ED Decision to Admit Stat 04/14/19 10:53 Consult Gastroenterology Routine 04/15/19 14:43 Consult Urology Routine 04/15/19 16:36 Consult Gastroenterology Routine Ordered Studies 04/13/19 10:48 CT abd pelvis IV con only Stat 04/15/19 08:33 MR MRCP Routine Hospital Course (1) Acute pancreatitis: - Presented with acute abdominal pain; has leukocytosis and acute pancreatitis noted at pancreatic tail but lipase remains normal - Does not drink ETOH at home; no evidence of gallstones. - CLD as tolerated; LR at 200 cc/hr. MRCP does not show any gallbladder or common bile duct disease or retained stones and only inflammation in the pancreatic tail as noted earlier - GI consulted, recommends improving bowel function given a dose of Relistor continue Senokot reduce IV fluids commend endoscopic ultrasound in 4 to 6 weeks as an outpatient once tolerating diet - Oxycodone, Dilaudid, Tylenol #3 for pain control. Laboratory studies remain normal; Appears the acute pancreatitis has resolved, the cause of the pancreatitis is unsure. Will stop ezetimibe as this may be a contributing factor.Will have patient folllowup with PCP and gastro as an outpatient (2) Leukocytosis: - Possibly related to pancreatitis vs. other. (3) Right ureteral stone: - 6 mm nonobstructing stone within distal right ureter noted on CT A/P at admission. - U/a negative; UC is negative (prelim) Pain does not appear to be in the geographic location for this nonobstructing stone -Started on Flomax 0.4 mg daily; on IVF of urology's opinion (4) Dysuria: - U/a and UC negative. - No indication for abx; dysuria now improving. (5) Anemia: - Hgb decreased since admission; hemoglobin 11 g range Patient is extremely low iron low transferrin saturation was taking p.o. will recommend augmenting iron intake Last colonoscopy was November 2017 showing a 3 mm rectal polyp that was path hyperplastic with pathology sigmoid diverticulosis random colonic path samples negative (6) CAD (coronary artery disease): - H/o angioplasty in the s followed by stent placement 1-2 years ago; does not follow with lithograph printer at [facility], therefore we do not have records. - Continue home ASA 81 mg daily, Amlodipine 5 mg daily, Toprol XL 50 mg qPM as prescribed. - No cardiac symptoms present at this time. (7) HLD (hyperlipidemia): - Hold Zetia. will resume Crestor at discharge (8) GERD (gastroesophageal reflux disease): - Zantac BID. (9) Chronic low back pain: - Follows with pain management; on Tylenol #3 at home. - Has follow up with pain management for SI joint injection in near future. (10) Hiatal hernia: - Small hiatal hernia noted on CT. (11) DVT prophylaxis: - Lovenox daily. Total Time Total Time Spent Total Time Spent (In Minutes): 32 Total Time Includes: Examination of the Patient, Discharge Planning and Medication Reconciliation Discharge Plan Discharge Items Patient Disposition: Home - Self-Care Reason For Visit: POSSIBLE PANCREATITIS Discharge Diagnosis: Pancreatitis Discharge Goals: Decrease discomfort Activity: Resume your previous activity Non-emergency contact: Primary Care Provider Call non-emergency contact if: you have any medication questions Follow-up/Referrals: Stalin Arrieta DO [Primary Care Provider] - Diet: Regular and Low Fat Addtl Provider Instructions: Urology outpatient follow up with [facility] for continued outpatient management. Followup with [facility] for Endoscopic Ultrasound. This will need to be done in 4-6 [facility] Prescriptions: New tamsulosin 0.4 mg Capsule 0.4 mg PO QAM Qty: 30 RF: 0 sennosides-docusate sodium [Senokot-S] 8.6-50 mg Tablet 1 tab PO BID PRN (Reason: CONSTIPATION) Qty: 30 RF: 0 Continued aspirin 81 mg Tablet,Delayed Release (Dr/Ec) 81 mg PO PM Qty: 0 RF: 0 metoprolol succinate [Toprol XL] 50 mg Tablet Extended Release 24 Hr 50 mg PO PM Qty: 30 RF: 0 amlodipine [Norvasc] 5 mg Tablet 5 mg PO QAM Qty: 0 RF: 0 nitroglycerin [Nitrolingual] 400 mcg/spray Yeaddiss,Non-Aerosol 400 mcg sublingual DIRECTED PRN (Reason: Chest Pain) Qty: 0 RF: 0 ranitidine HCl [Zantac Maximum Strength] 150 mg Tablet 150 mg PO BID Qty: 0 RF: 0 acetaminophen-codeine [Tylenol-Codeine #3] 300-30 mg Tablet 1 tab PO QID PRN (Reason: Pain) Qty: 0 RF: 0 rosuvastatin [Crestor] 5 mg tablet 5 mg PO HS RF: 0 coQ10 (ubiquinol) 200 mg Capsule 200 mg PO PM RF: 0 Discontinued ezetimibe 10 mg tablet 10 mg PO QAM RF: 0 Stand-Alone Forms: [facility] Discharge Orders: Discharge Order (Routine); Ordered 04/17/19 Ordered By: Rodrigo Tam Admission Data Admit Date/Time: 04/13/19 13:06 Attending Provider: Rodrigo Tam Admit Provider: Shree Dixon Primary Care Provider: Stalin Arrieta Other Providers: Shree Dixon ; Trevin Guerrero ; Angelina Garcia ; Darvin Joseph I. ; Eber Herr Service: Medical Other Interventions: Discharge Summary Assessment (RN) Last Done: 04/17/19 14:00 DC Date/Time DO NOT enter until pt leaves facility: 04/17/19 14:34
== END 2019-04-17 14:34 | disposition home or self-care (01) | DRG 439 ==
LOC: ED 10:22 → SUATTDRO 13:06 → 4W 13:06

== ENCOUNTER 2022-06-28 09:49 | Inpatient (IN) ==
--- NOTE | 2022-05-30 16:15 | PAT Medication Instructions ---
Medication Instructions Date of Service May 30, 2022 Home Medications Medication Instructions Recorded tamsulosin 0.4 mg capsule 0.4 mg PO QAM #30 caps 04/17/19 aspirin 81 mg tablet,delayed release 81 mg PO QAM nitroglycerin 400 mcg/spray translingual (Nitrolingual) 400 mcg sublingual UD PRN ranitidine HCl 150 mg tablet (Zantac Maximum Strength) 150 mg PO BID rosuvastatin 5 mg tablet (Crestor) 5 mg PO HS tamsulosin 0.4 mg capsule 0.4 mg PO QAM acetaminophen 650 mg tablet,extended release 1,300 mg PO Q8H PRN amlodipine 2.5 mg tablet 2.5 mg PO QAM duloxetine 60 mg capsule,delayed release 60 mg PO QAM metoprolol succinate 25 mg capsule sprinkle, ext. release 24 hr 37.5 mg PO HS 05/27/22 [History Confirmed 05/27/22] oxycodone 10 mg tablet,crush resistant,extended release 12 hr (OxyContin) 10 mg PO QID Continue as directed nitroglycerin 400 mcg/spray translingual (Nitrolingual) 400 mcg sublingual UD PRN(if needed) oxycodone 10 mg tablet,crush resistant,extended release 12 hr (OxyContin) 10 mg PO QID ASK your prescriber and surgeon aspirin 81 mg tablet,delayed release 81 mg PO QAM Take morning of surgery With a small sip of water, OTHERWISE NOTHING TO EAT OR DRINK AFTER MIDNIGHT: ranitidine HCl 150 mg tablet (Zantac Maximum Strength) 150 mg PO BID tamsulosin 0.4 mg capsule 0.4 mg PO QAM acetaminophen 650 mg tablet,extended release 1,300 mg PO Q8H PRN(if needed) amlodipine 2.5 mg tablet 2.5 mg PO QAM duloxetine 60 mg capsule,delayed release 60 mg PO QAM Take evening before surgery ranitidine HCl 150 mg tablet (Zantac Maximum Strength) 150 mg PO BID rosuvastatin 5 mg tablet (Crestor) 5 mg PO HS acetaminophen 650 mg tablet,extended release 1,300 mg PO Q8H PRN(if needed) Other Notes If you have any questions please call us at [phone] or [phone] or [phone] or [phone]
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
[~2022-06-28 09:49] MED LIST changes: -ACET300T2 PO; +ACETAMINOPHEN 500 MG TAB PO SCH; -AMLO-110 PO; -AMT50 PO; -ASPI81TA28 PO; -CLOP1TAB15 PO; -CYCL10TA6 PO; +GABAPENTIN 300 MG CAP PO SCH; +LR 15ML/HR IV SCH; -METO25TA3 PO; -NITRO SPRAY SL; -RANI150T3 PO; -ROSU20TA PO; +ceFAZolin 1000MG 1,000 MG/7.5 ML SYR IV SCH
[2022-06-28] MEDS: CeleBREX 200 MG CAP PO SCH ×2 (10:33→10:50)
[2022-06-28] MEDS ORDERED: PROPOFOL IV EMULSION 10 MG/ML 20 ML VIAL IV ONE (10:45)
[2022-06-28] MEDS ORDERED: DEXAMETHASONE SOD INJ 4 MG/ML VIAL ONE (10:45)
[2022-06-28] MEDS ORDERED: MIDAZOLAM HCL 1 MG/ML 2ML VIAL ONE (10:45)
[2022-06-28] MEDS ORDERED: fentaNYL citrate 100 MCG/2 ML VIAL ONE ×2 (10:45→11:32)
[2022-06-28] MEDS ORDERED: LIDOCAINE 2% 20 MG/ML 5 ML SYR IV ONE (10:45)
[2022-06-28] MEDS ORDERED: ONDANSETRON INJ 2 MG/ML 2 ML VIAL ONE ×2 (10:45→12:59)
[2022-06-28] MEDS ORDERED: ROCURONIUM BROMIDE 10 MG/ML 5 ML VIAL IV ONE (10:45)
[2022-06-28] MEDS ORDERED: PHENYLEPHRINE HCL 10 MG/ML VIAL ONE (10:46)
--- NOTE | 2022-06-28 11:02 | History & Physical Bridge Note ---
Date of Service June 28, 2022 History & Physical Bridge Note I have examined the patient, reviewed the History & Physical and in the interval since the performance of the History & Physical I have noted the following changes of clinical significance: no changes noted
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
[2022-06-28] MEDS ORDERED: BUPIVACAINE/EPINEPHRINE 0.25% 1:200,000 30 ML VIAL ONE (11:08)
[2022-06-28] MEDS ORDERED: ceFAZolin 330 MG/ML 1 GM VIAL ONE (11:08)
[2022-06-28] MEDS ORDERED: ePHEDrine sulfate 50 MG/ML AMP IV PRN (11:17)
[2022-06-28] MEDS ORDERED: ATROPINE SULFATE 0.1 MG/ML 10ML SYR IV PRN (11:17)
[2022-06-28] MEDS ORDERED: ONDANSETRON INJ 2 MG/ML 2 ML VIAL IV PRN ×2 (11:17→16:14)
[2022-06-28] MEDS ORDERED: HYDROmorphone INJ 1 MG/ML SYRINGE IV PRN (11:17)
[2022-06-28] MEDS ORDERED: KETAMINE 50 MG/5 ML SYRINGE ONE (11:32)
[2022-06-28] MEDS ORDERED: PHENYLEPHRINE 100MCG/ML 5ML SYR ONE (12:10)
[2022-06-28] MEDS ORDERED: ePHEDrine sulfate 50 MG/ML AMP ONE (12:10)
[2022-06-28] MEDS ORDERED: GLYCOPYRROLATE 0.2 MG/ML VIAL ONE (12:16)
[2022-06-28] MEDS ORDERED: FLOSEAL HEMOSTATIC MATRIX 10ML TOP ONE (12:16)
[2022-06-28] MEDS ORDERED: NEOSTIGMINE METHYLSULFATE 1 MG/ML 10ML VIAL ONE (12:16)
[2022-06-28] MEDS ORDERED: HYDROmorphone INJ 2 MG/ML SYR/VIAL ONE (13:32)
--- NOTE | 2022-06-28 13:51 | Operative Report ---
Post Operative Report Pre & Post Diagnosis Operation Date: 06/28/22 11:35 Pre-Op Diagnosis: Neurogenic Claudication due to Lumbar Spinal Stenosis Post-Op Diagnosis: Neurogenic Claudication due to Lumbar Spinal Stenosis I identified the patient and participated in the time-out.: Yes Procedure Operation Date: 06/28/22 11:35 Actual Procedures #1 removal of posterior interspinous instrumentation L3-L4 L4-5. #2 revision decompression with bilateral medial facetectomies and foraminotomies L2-L3, L3- L4 and L4-L5. #3 posterior spinal fusion L2-L5. #4 placement posterior segmental instrumentation L2-L5. #5 placement of interbody fusion L2-L3, L3-L4 and L4-5. #6 placement of Spira cage 13 x 26 mm at L2-L3, 13 x 26 mm at L3-L4 and 14 x 26 mm at L4-L5. #7 placement locally harvested morselized autograft in the posterior gutters. #8 placement I factor model V toss in interbody space and posterior lateral gutters. Surgeon Nicholas Osborn, Business Manager [employer] Skye Casey Estimated Blood Loss 450 Findings Consistent with Post-Op Diagnosis Specimens None Indications This is a 66-year-old male who presents above-mentioned diagnosis after failed course of nonoperative care is here for the above-mentioned procedure. Description of Procedure Patient was met with identified informed consent obtained. Patient was then taken to the operative suite underwent a patient placed in a prone position the [place] table top Dominic frame. All bony prominences well-padded eyes inspected to ensure no external pressure placed upon the. This point lumbar spine was prepped and draped in a sterile fashion. Sharp dissection with the assistance bradycardia was performed down to and exposing the remaining lamina and interim spinous implants at L2 L3-L4-L5 bilaterally. Then proceeded to move the interspinous construct at L3-L4 L4-5 and then performed complete revision laminectomy of L4 L3 and L2 including bilateral medial facetectomies and foraminotomies addressing severe spinal stenosis. Pedicle screws were then placed in L2-L3-L4 and L5 bilaterally with the assistance of fluoroscopy and the properly sized joseph placed. By way of a transforaminal approach on the left complete discectomy of L4-L5 was performed endplates curetted to subcortically bone and a 14 x 26 mm spiral cage with I factor tapped in position. Then proceeded to L3-L4 and again by way the transforaminal approach and left complete discectomy performed endplates curetted to subcortical bone and a 13 x 26 mm spiral cage with I factor tapped in position. Lastly proceeded L2-L3 and again by way of a transfemoral approach and left pleat discectomy performed endplates curetted to subcortical bleeding bone and a 13 x 26 mm spiral cage with I factor tapped the position. The rods were then locked into final position bilaterally. The transverse processes of L2-L3 L4-5 burred to subcortical bleeding bone. I factor model V toss and locally harvested morselized autograft was placed in the posterior lateral gutters. 15 round SANTO drain inserted. The incision was then closed with 1 Vicryl in the fascia 2-0 Vicryl subcutaneously and 4 Monocryl for final skin closure. Steri-Strip sterile dressings placed. Patient waken taken PACU stable condition. Please note spinal cord monitoring was utilized at the procedure no changes noted. Lastly Skye Casey was present at the entire surgeon while the patient positioning complex portions of the surgery and final skin closure. I attest to the content of the Intraoperative Record and any orders documented therein. Any exceptions are noted below.
--- NOTE | 2022-06-28 14:09 | Fluoroscopy Report ---
FL lumbar spine 2-3V CLINICAL HISTORY: L2-L5 DECOMPRESSION AND FUSION L3-L5 REMOVAL OF HW COMPARISON STUDY: Lumbar spine 05/05/2021. FLUOROSCOPY TIME: 27 seconds. FINDINGS: 2 fluoroscopic spot images of the lumbar spine demonstrate posterior decompression and fusi on from L2 through L5 with pedicle screws and rods. The hardware appears intact. Disc spaces are plac ed. IMPRESSION: Fluoroscopic assistance provided for L2-L5 posterior decompression and fusion. ACT 112: Negative or not required by law. Electronically signed by: Bill Redmond M.D. 06/28/2022 2:08 PM
[2022-06-28] MEDS: fentaNYL citrate 100 MCG/2 ML VIAL IV PRN ×2 (14:49→14:54)
--- NOTE | 2022-06-28 15:40 | Anesthesiology Progress Note ---
Date of Service June 28, 2022 Anesthesia Post Procedure Vital Signs Vital Signs: Temp Pulse Pulse Resp BP Pulse Ox O2 Del Method 06/28/22 15:20 69 12 88/44 L 94 Nasal Cannula 06/28/22 15:10 75 12 98/43 L 100 Nasal Cannula 06/28/22 15:00 77 12 87/44 L 95 Room Air 06/28/22 14:50 73 15 97/47 L 100 Oxymask 06/28/22 14:40 80 14 95/44 L 100 Oxymask 06/28/22 14:30 78 18 91/47 L 100 Oxymask 06/28/22 14:20 75 17 103/46 L 100 Oxymask 06/28/22 14:10 73 17 87/45 L 100 Oxymask 06/28/22 14:04 36.3 C L 60 17 76/38 L 100 Oxymask 06/28/22 10:14 36.5 C 64 20 128/69 97 Room Air O2 Flow Rate 06/28/22 15:20 2 06/28/22 15:10 2 06/28/22 15:00 06/28/22 14:50 3 06/28/22 14:40 6 06/28/22 14:30 6 06/28/22 14:20 6 06/28/22 14:10 6 06/28/22 14:04 6 06/28/22 10:14 Pain Intensity Left Back: Pain Intensity: 3 Lower Back: Pain Intensity: 3 Transfer of Care Handoff Completed per policy Notes Mental Status: alert / awake / arousable Patient Amnestic to Procedure: Yes Nausea / Vomiting: adequately controlled Pain: adequately controlled Airway Patency, RR, SpO2: stable & adequate BP & HR: stable & adequate and see Notes below Hydration State: stable & adequate Anesthetic Complications: no major complications apparent and Pt Satisfied with anesthetic care Notes: The patient is awake and stable. His SBP has been in the 80s postoperatively. He has been given 1 liter of LR in PACU for a total of 3 liters of LR. His SBP is now in the 90s. The patient is wide awake and coherent. He would like to go upstairs and states that his SBP is normally in the 100s to 110s. He has some mild surgical site pain but is otherwise comfortable. He has no dizziness or chest pain. His other vital signs are stable.
[2022-06-28] MEDS ORDERED: SOD PHOSPHATE/SOD BIPHOSPHATE ENEMA 132 ML BTL PR PRN (16:14)
[2022-06-28] MEDS ORDERED: MAGNESIUM HYDROXIDE SUSP 30 ML UDC PO PRN (16:14)
[2022-06-28] MEDS ORDERED: NITROGLYCERIN 60 SPRAYS/4.9 GM SPRAY SL PRN (16:14)
[2022-06-28] MEDS ORDERED: FAMOTIDINE 20 MG TAB PO PRN (16:14)
[2022-06-28] MEDS ORDERED: LORazepam 0.5 MG in SYRINGE 0 ML IV PRN (16:14)
[2022-06-28] MEDS ORDERED: ALUMINUM/MAGNESIUM SUSP 30 ML UDC PO PRN (16:14)
[2022-06-28] MEDS ORDERED: LORazepam 0.5 MG TAB PO PRN (16:14)
[2022-06-28] MEDS ORDERED: diphenhydrAMINE Capsule 25 MG CAP PO PRN (16:14)
[2022-06-28] MEDS ORDERED: PROMETHAZINE HCL 12.5 MG in SODIUM CHLORIDE 0.9% 50 ML IV PRN (16:14)
[2022-06-28] MEDS ORDERED: ONDANSETRON 4 MG OD TAB PO PRN (16:14)
[2022-06-28] MEDS ORDERED: bisacodyL 10 MG SUPP PR PRN (16:14)
[2022-06-28] MEDS ORDERED: HYDROmorphone INJ 0.5 MG/0.5 ML SYR IV PRN (16:14)
[2022-06-28] MEDS ORDERED: METOCLOPRAMIDE HCL INJ 5 MG/ML 2 ML VIAL IV PRN (16:14)
[2022-06-28] MEDS ORDERED: ACETAMINOPHEN 1,000 MG/100 ML VIAL IV PRN (16:14)
[2022-06-28] MEDS ORDERED: NALOXONE HCL 0.4 MG/1 ML VIAL/CARP IV PRN (16:14)
[2022-06-28] MEDS ORDERED: ACETAMINOPHEN 500 MG TAB PO PRN (16:14)
[2022-06-28] MEDS ORDERED: hydrOXYzine HCl 25 MG TAB PO PRN (16:14)
[2022-06-28] MEDS: LACTATED RINGER'S 1,000 ML IV SCH (16:38)
[2022-06-28] MEDS: oxyCODONE/ACETAMINOPHEN 10-325 TAB PO PRN ×2 (16:43→20:53)
[2022-06-28] MEDS ORDERED: oxyCODONE HCL 10 MG TABCR (OxyCONTIN) PO SCH (17:00)
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
[2022-06-28] MEDS: HYDROmorphone INJ 1 MG/ML SYRINGE IV PRN ×2 (18:30→22:17)
[2022-06-28] MEDS: ceFAZolin 2000MG 2,000 MG/15 ML SYR IV SCH (20:11)
[2022-06-28] MEDS: ROSUVASTATIN CALCIUM 5 MG TAB PO SCH (20:12)
[2022-06-28] MEDS: DOCUSATE SODIUM/SENNA 50/8.6MG TAB PO SCH (20:12)
[2022-06-28] MEDS ORDERED: METOPROLOL SUCC 25MG EXT REL TAB PO SCH (21:00)
[2022-06-28] MEDS ORDERED: METOPROLOL SUCC 25MG EXT REL TAB PO ONE (21:36)
[2022-06-29] MEDS: ceFAZolin 2000MG 2,000 MG/15 ML SYR IV SCH (04:07)
[2022-06-29] MEDS: oxyCODONE/ACETAMINOPHEN 10-325 TAB PO PRN ×5 (04:18→23:02)
[2022-06-29] MEDS: POLYETHYLENE (MIRALAX) 17 GM PACK PO SCH ×4 (04:19→20:48)
[2022-06-29] MEDS: LACTATED RINGER'S 1,000 ML IV SCH (04:21)
[2022-06-29 06:26] LABS: Basophils # (auto) 0.01 K/uL (0-0.2); Basophils % (auto) 0.1 %; Hematocrit (blood only) 26.8 % (40.1-51.0); Hemoglobin 9.1 g/dl (14.0-18.0); Immature Granulocytes # (auto) 0.08 K/uL (0.00-0.02); Immature Granulocytes % (auto) 0.5 %; Lymphocytes # (auto) 0.66 K/uL (1.2-3.4); Lymphocytes % (auto) 4.5 %; Mean Corpuscular Hemoglobin 30.8 pg (25.0-34.0); Mean Corpuscular Volume 90.8 fL (80.0-100.0); Mean Platelet Volume 8.7 fL (9.4-12.4); Monocytes # (auto) 0.91 K/uL (0.24-0.82); Monocytes % (auto) 6.2 %; Neutrophils # (auto) 13.11 K/uL (1.4-6.5); Neutrophils % (auto) 88.7 %; Platelet Count 203 K/uL (130-400); Red Blood Count 2.95 M/uL (4.63-6.08); White Blood Count 14.77 K/ul (4.8-10.8)
[2022-06-29 06:52] LABS: BUN Creatinine Ratio 20.4 (10-20); Calcium 8.7 mg/dl (8.5-10.1); Creatinine Clr Calc Pharmacy 69.8 ml/min; Est GFR (African American) 91.4 ml/min; Est GFR (Non-African American) 78.9 ml/min; Potassium 4.9 mmol/L (3.5-5.1)
[2022-06-29] MEDS: HYDROmorphone INJ 1 MG/ML SYRINGE IV PRN ×5 (07:28→20:47)
--- NOTE | 2022-06-29 08:15 | Orthopedic Progress Note ---
Date of Service June 29, 2022 Assessment & Plan (1) Status post lumbar spine surgery for decompression of spinal cord: Plan: Mr. Ma post op day 1 status post Coflex removal L3-5, decompression instrumented fusion L2-5. Will start physical therapy today. Maintain SANTO drain. DVT prophylaxis is in the form of teds and SCDs. Continue with pain control. Continue with aggressive bowel regimen. Anticipate discharge home within the next 48 to 72 hours. Admission and Anticipated Discharge Date Admission Date: June 28, 2022 Subjective Mr. Busby is postoperative day 1 status post Coflex removal L3-4, L4-5, decompression instrumented fusion L2-5. He has had an uneventful evening. Leg pain is greatly improved compared to preoperative status. SANTO drain output last shift was 60 cc. H&H is morning are 9.1 and 26.8 respectively. Review of Systems Review of Systems: All systems reviewed & are unremarkable except as noted in HPI & below Physical Exam Physical Exam: He is lying in bed in no acute distress Alert and oriented x3 Lumbar dressing is clean dry and intact with functioning SANTO drain DANILO hose intact bilaterally Calf soft and nontender bilaterally Strength intact bilateral lower extremities Results & Data ([facility]) Vital Signs (Past 12 Hours) Vital Signs Temp Pulse Resp BP Pulse Ox O2 Del Method 06/29/22 07:55 36.8 C 81 16 107/64 93 Room Air 06/29/22 04:08 36.7 C 89 22 94/57 L 92 Room Air 06/28/22 22:31 36.6 C 93 H 18 106/56 L 93 Room Air
[2022-06-29] MEDS: ASPIRIN 81 MG ECTAB PO SCH (08:27)
[2022-06-29] MEDS: TAMSULOSIN HCL 0.4 MG CAP PO SCH (08:27)
[2022-06-29] MEDS: dexAMETHasone 6 MG in SYRINGE 0 ML IV SCH (08:28)
[2022-06-29] MEDS: DULoxetine HCL 60 MG CAP PO SCH (08:28)
--- NOTE | 2022-06-29 08:42 | Hospitalist Progress Note ---
Date of Service June 29, 2022 Assessment & Plan (1) Status post lumbar spine surgery for decompression of spinal cord: Plan: POD# 1 #1 removal of posterior interspinous instrumentation L3-L4 L4-5. #2 revision decompression with bilateral medial facetectomies and foraminotomies L2-L3, L3-L4 and L4-L5. #3 posterior spinal fusion L2-L5. #4 placement posterior segmental instrumentation L2-L5. #5 placement of interbody fusion L2- L3, L3-L4 and L4-5. #6 placement of Spira cage 13 x 26 mm at L2-L3, 13 x 26 mm at L3-L4 and 14 x 26 mm at L4-L5. #7 placement locally harvested morselized autograft in the posterior gutters. #8 placement I factor model V toss in i nterbody space and posterior lateral gutters. Pain control/bowel regimen/PT/OT per primary service DVT prophylaxis -- mica hose, SCDs WBC elevation likely secondary to steroids/decadron. Afebrile Anemia acute on chronic issue it appears H/h dropped from 12.4/36.8 to 9.1/26.8 post-operatively. Acute blood loss anemia from surgery, EBL 450cc, SANTO output 470cc, as well as d ilutional from IVF post-op Denies any lightheaded/dizziness, will continue to monitor CBC in AM Remains on Famotidine for GI ulcer proph, denied any GI sx on exam but will monitor Will check iron studies w/ AM labs and CBC * (prior low iron 19, trans% sat 7 in 2019) and also general pallor on exam. Will also check B12 given prior level in 2019 was in 300s Last colonoscopy was November 2017 showing a 3 mm rectal polyp that was path hyperplastic with pathology sigmoid diverticulosis random colonic path samples negative Per primary, dc in next 48-72 hours Labs in AM (2) HTN (hypertension): Plan: BP stable 111/64, no lightheaded/dizziness reported Amlodipine resumed for today 06/29 as borderline BP last evening Metoprolol changed to start for today 37.5mg HS Monitor for hypotension (3) GERD (gastroesophageal reflux disease): Plan: -Contiue famotidine Plan Will check iron studies/B12 in AM for anemia which appears since 2019 and had been admitted for a gallstone pancreatitis and hgb drop Hospitalist group will follow along. Admission and Anticipated Discharge Date Admission Date: June 28, 2022 Subjective Evaluated this morning Doing well Tingling/pain to his right thigh has resolved after surgery, strength improved. Walked halls with therapy this morning per patient. Passing gas but no BM. Continues with ambulation. Hopeful to have huston removed today, has been ambulating. Had back surgery in 2019, was trying to put this off but wanted to get another 10 years at least and is usually a very active jhony. No fever/chills, no chest pain or shortness of breath. Anticipating discharge on Monday per PT. Review of Systems Review of Systems: All systems reviewed & are unremarkable except as noted in HPI & below Physical Exam Physical Exam: Physical Exam: General: WD/WN male sitting up in chair, just finished working with therapy, general pallor, NAD, appears comfortable HEENT: head normocephalic, atraumatic, mmm, trachea midline Resp: CTAB, no w/c/r, on room air CV: RRR< no m/r/g, no pitting edema/calf tenderness GI: +BS, nontender : + huston draining clear yellow urine MSK/Neuro: moves all extremities, dressing to lumbar spine c/d/i, SANTO drain with bloody drainage, no calf tenderness, strength equal b/l LE Psych: AOx3, pleasant and cooperative Results & Data Results & Data ([facility]) Vital Signs (Past 12 Hours) Vital Signs Temp Pulse Resp BP Pulse Ox O2 Del Method 06/29/22 07:55 36.8 C 81 16 107/64 93 Room Air 06/29/22 04:08 36.7 C 89 22 94/57 L 92 Room Air 06/28/22 22:31 36.6 C 93 H 18 106/56 L 93 Room Air Laboratory Results 06/29/22 06/29/22 Range/Units 06:13 06:13 WBC 14.77 H (4.8-10.8) K/ul RBC 2.95 L (4.63-6.08) M/uL Hgb 9.1 L (14.0-18.0) g/dl Hct 26.8 L (40.1-51.0) % MCV 90.8 (80.0-100.0) fL MCH 30.8 (25.0-34.0) pg MCHC 34.0 (32.0-36.0) g/dL RDW Std Deviation 40.0 (36.4-46.3) fL RDW Coeff of Aakash 12.0 (11.5-14.5) % Plt Count 203 (130-400) K/uL MPV 8.7 L (9.4-12.4) fL Immature Gran % (Auto) 0.5 % Neut % (Auto) 88.7 % Lymph % (Auto) 4.5 % [place] % (Auto) 6.2 % Eos % (Auto) 0.0 % Baso % (Auto) 0.1 % Neut # (Auto) 13.11 H (1.4-6.5) K/uL Lymph # (Auto) 0.66 L (1.2-3.4) K/uL [place] # (Auto) 0.91 H (0.24-0.82) K/uL Eos # (Auto) 0.00 (0-0.50) K/uL Baso # (Auto) 0.01 (0-0.2) K/uL Immature Gran # (Auto) 0.08 H (0.00-0.02) K/uL Sodium 137 (136-145) mmol/L Potassium 4.9 (3.5-5.1) mmol/L Chloride 104 (98-107) mmol/L Carbon Dioxide 29 (21-32) mmol/L Anion Gap 4 (3-11) BUN 20 (6-23) mg/dl Creatinine 0.98 (0.6-1.4) mg/dl Est Cr Clr Drug Dosing 69.8 ml/min Est GFR ( Amer) 91.4 ml/min Est GFR (Non-Af Amer) 78.9 ml/min BUN/Creatinine Ratio 20.4 H (10-20) Glucose 131 H (70-99(Fasting)) mg/dl Calcium 8.7 (8.5-10.1) mg/dl Diagnostic Findings Lumbar Spine X-Ray 06/28/22 11:35 FL lumbar spine 2-3V CLINICAL HISTORY: L2-L5 DECOMPRESSION AND FUSION L3-L5 REMOVAL OF HW COMPARISON STUDY: Lumbar spine 05/05/2021. FLUOROSCOPY TIME: 27 seconds. FINDINGS: 2 fluoroscopic spot images of the lumbar spine demonstrate posterior decompression and fusion from L2 through L5 with pedicle screws and rods. The hardware appears intact. Disc spaces are placed. IMPRESSION: Fluoroscopic assistance provided for L2-L5 posterior decompression and fusion. ACT 112: Negative or not required by law. Electronically signed by: Bill Redmond M.D. 06/28/2022 2:08 PM PG Care Time/CCT Total # of Minutes Spent Total Time Spent with Patient: Total time spent is greater than 50% in coordination of care (as documented) at patient's floor/unit and/or counseling patient: Coding Level of Care Code 16658 Subseq Hosp Care Lvl 3 Diagnoses Status post lumbar spine surgery for decompression of spinal cord Z98.890 HTN (hypertension) I10 GERD (gastroesophageal reflux disease) K21.9
[2022-06-29] MEDS ORDERED: amLODIPine BESYLATE 5 MG TAB PO SCH (09:00)
[2022-06-29] MEDS: ROSUVASTATIN CALCIUM 5 MG TAB PO SCH (20:48)
[2022-06-29] MEDS: DOCUSATE SODIUM/SENNA 50/8.6MG TAB PO SCH (20:48)
[2022-06-29] MEDS: METOPROLOL SUCC 25MG EXT REL TAB PO SCH (20:48)
[2022-06-30] MEDS: HYDROmorphone INJ 1 MG/ML SYRINGE IV PRN ×3 (00:02→16:14)
[2022-06-30] MEDS: oxyCODONE/ACETAMINOPHEN 10-325 TAB PO PRN ×4 (05:01→21:04)
[2022-06-30] MEDS: POLYETHYLENE (MIRALAX) 17 GM PACK PO SCH ×3 (05:01→17:56)
[2022-06-30 06:43] LABS: Hematocrit (blood only) 27.2 % (40.1-51.0); Mean Corpuscular Hgb Conc 33.1 g/dL (32.0-36.0); Mean Corpuscular Volume 93.8 fL (80.0-100.0); Mean Platelet Volume 9.3 fL (9.4-12.4); Platelet Count 225 K/uL (130-400); RDW Coefficient of Variation 12.4 % (11.5-14.5); RDW Standard Deviation 42.8 fL (36.4-46.3); White Blood Count 14.81 K/ul (4.8-10.8)
[2022-06-30 07:12] LABS: BUN Creatinine Ratio 18.8 (10-20); Calcium 8.9 mg/dl (8.5-10.1); Creatinine Clr Calc Pharmacy 67.7 ml/min; Est GFR (African American) 88.2 ml/min; Est GFR (Non-African American) 76.1 ml/min
[2022-06-30 07:30] LABS: Ferritin 260.7 ng/ml (8-388)
--- NOTE | 2022-06-30 08:15 | Orthopedic Progress Note ---
Date of Service June 30, 2022 Assessment & Plan (1) Neurogenic claudication due to lumbar spinal stenosis: Plan: This time continue physical therapy monitor his SANTO output anticipate discharge home tomorrow. Admission and Anticipated Discharge Date Admission Date: June 28, 2022 Subjective Back pain controlled leg symptoms markedly improved Physical Exam Physical Exam: Patient is in the chair at the bedside. Is good strength testing. Appears comfortable. Results & Data ([facility]) Vital Signs (Past 12 Hours) Vital Signs Temp Pulse Resp BP Pulse Ox O2 Del Method 06/30/22 07:18 36.4 C L 65 17 120/68 95 Room Air 06/29/22 22:25 36.6 C 64 18 138/67 95 Room Air
--- NOTE | 2022-06-30 08:30 | Hospitalist Progress Note ---
Date of Service June 30, 2022 Assessment & Plan (1) Status post lumbar spine surgery for decompression of spinal cord: Plan: POD# 1 #1 removal of posterior interspinous instrumentation L3-L4 L4-5. #2 revision decompression with bilateral medial facetectomies and foraminotomies L2-L3, L3-L4 and L4-L5. #3 posterior spinal fusion L2-L5. #4 placement posterior segmental instrumentation L2-L5. #5 placement of interbody fusion L2- L3, L3-L4 and L4-5. #6 placement of Spira cage 13 x 26 mm at L2-L3, 13 x 26 mm at L3-L4 and 14 x 26 mm at L4-L5. #7 placement locally harvested morselized autograft in the posterior gutters. #8 placement I factor model V toss in i nterbody space and posterior lateral gutters. Pain control/bowel regimen/PT/OT per primary service DVT prophylaxis -- mica hose, SCDs WBC elevation likely secondary to steroids/decadron. Afebrile Anemia acute on chronic issue it appears H/h dropped from 12.4/36.8 to 9.1/26.8 post-operatively. Acute blood loss anemia from surgery, EBL 450cc, SANTO output 470cc, as well as d ilutional from IVF post-op Denies any lightheaded/dizziness, will continue to monitor CBC in AM Remains on Famotidine for GI ulcer proph, denied any GI sx on exam but will monitor Will check iron studies w/ AM labs and CBC * (prior low iron 19, trans% sat 7 in 2019) and also general pallor on exam. Will also check B12 given prior level in 2019 was in 300s Last colonoscopy was November 2017 showing a 3 mm rectal polyp that was path hyperplastic with pathology sigmoid diverticulosis random colonic path samples negative Per primary, dc in next 48-72 hours Labs in AM (2) HTN (hypertension): Plan: BP stable 111/64, no lightheaded/dizziness reported Amlodipine resumed for today 06/29 as borderline BP last evening Metoprolol changed to start for today 37.5mg HS Monitor for hypotension (3) GERD (gastroesophageal reflux disease): Plan: -Contiue famotidine Plan Will check iron studies/B12 in AM for anemia which appears since 2019 and had been admitted for a gallstone pancreatitis and hgb drop Hospitalist group will follow along. Admission and Anticipated Discharge Date Admission Date: June 28, 2022 Results & Data Results & Data ([facility]) Vital Signs (Past 12 Hours) Vital Signs Temp Pulse Resp BP Pulse Ox O2 Del Method 06/30/22 07:18 36.4 C L 65 17 120/68 95 Room Air 06/29/22 22:25 36.6 C 64 18 138/67 95 Room Air Laboratory Results 06/30/22 06/30/22 06/30/22 Range/Units 06:21 06:21 06:21 WBC 14.81 H (4.8-10.8) K/ul RBC 2.90 L (4.63-6.08) M/uL Hgb 9.0 L (14.0-18.0) g/dl Hct 27.2 L (40.1-51.0) % MCV 93.8 (80.0-100.0) fL MCH 31.0 (25.0-34.0) pg MCHC 33.1 (32.0-36.0) g/dL RDW Std Deviation 42.8 (36.4-46.3) fL RDW Coeff of Aakash 12.4 (11.5-14.5) % Plt Count 225 (130-400) K/uL MPV 9.3 L (9.4-12.4) fL Sodium 136 (136-145) mmol/L Potassium 4.0 (3.5-5.1) mmol/L Chloride 101 (98-107) mmol/L Carbon Dioxide 29 (21-32) mmol/L Anion Gap 6 (3-11) BUN 19 (6-23) mg/dl Creatinine 1.01 (0.6-1.4) mg/dl Est Cr Clr Drug Dosing 67.7 ml/min Est GFR ( Amer) 88.2 ml/min Est GFR (Non-Af Amer) 76.1 ml/min BUN/Creatinine Ratio 18.8 (10-20) Glucose 141 H (70-99(Fasting)) mg/dl Calcium 8.9 (8.5-10.1) mg/dl Iron 91 (35-175) mcg/dl TIBC 304 (250-450) mcg/dl Unsaturated IBC 213 (155-355) mcg/dl Transferrin % Sat 30 (20-50) % Ferritin 260.7 (8-388) ng/ml Vitamin B12 242 (180-914) pg/ml PG Care Time/CCT Total # of Minutes Spent Total Time Spent with Patient: Total time spent is greater than 50% in coordination of care (as documented) at patient's floor/unit and/or counseling patient: Coding Diagnoses Status post lumbar spine surgery for decompression of spinal cord Z98.890 HTN (hypertension) I10 GERD (gastroesophageal reflux disease) K21.9
[2022-06-30] MEDS ORDERED: CYANOCOBALAMIN 1000 MCG/ML VIAL IM SCH (09:00)
[2022-06-30] MEDS: dexAMETHasone 6 MG in SYRINGE 0 ML IV SCH (09:22)
[2022-06-30] MEDS: DULoxetine HCL 60 MG CAP PO SCH (09:22)
[2022-06-30] MEDS: ASPIRIN 81 MG ECTAB PO SCH (09:22)
[2022-06-30] MEDS: TAMSULOSIN HCL 0.4 MG CAP PO SCH (09:22)
--- NOTE | 2022-06-30 11:47 | Communication Note ---
Date of Service: June 30, 2022 Patient visited POD #2 in room ambulating with walker with . Passing lots of gas, no BM yet but no abd pain. Pain controlled and only required one additional IV dose of medication. Planning to go home tomorrow morning. NO fever/chill/chest pain, shortness of breath, abd pain, nausea or issues voiding since huston removed. Discussed low B12 and IM injection this morning and PO sent at d/c. He got notified by pharmacy about the B12 this morning. H/h 9.1--> 9.0 and stable. Continue B12 at d/c. No lightheaded/dizziness. Consider PO iron but could hold off given checked iron stores and acceptable. Questions/concerns addressed. No need for formal evaluation. Hospitalist service will sign off at this time. Please call with any questions/concerns.
[2022-06-30] MEDS: FAMOTIDINE 20 MG TAB PO SCH (16:00)
[2022-06-30] MEDS: ROSUVASTATIN CALCIUM 5 MG TAB PO SCH (21:04)
[2022-06-30] MEDS: METOPROLOL SUCC 25MG EXT REL TAB PO SCH (21:04)
[2022-06-30] MEDS: DOCUSATE SODIUM/SENNA 50/8.6MG TAB PO SCH (21:04)
[2022-07-01] MEDS: POLYETHYLENE (MIRALAX) 17 GM PACK PO SCH ×2 (02:41→05:05)
[2022-07-01] MEDS: oxyCODONE/ACETAMINOPHEN 10-325 TAB PO PRN ×2 (05:05→09:32)
[2022-07-01] MEDS: FAMOTIDINE 20 MG TAB PO SCH (05:05)
[2022-07-01] MEDS: ASPIRIN 81 MG ECTAB PO SCH (08:18)
[2022-07-01] MEDS: dexAMETHasone 6 MG in SYRINGE 0 ML IV SCH (08:18)
[2022-07-01] MEDS: DULoxetine HCL 60 MG CAP PO SCH (08:18)
[2022-07-01] MEDS: TAMSULOSIN HCL 0.4 MG CAP PO SCH (08:18)
--- NOTE | 2022-07-01 09:36 | Discharge Summary ---
Date of Service July 01, 2022 Admission HPI Per Admitting Provider This is a 58-year-old male who presents with chronic persistent back and leg pain. After the course of nonoperative care is here for surgical intervention. Principal Diagnosis Lumbar spinal stenosis with neurogenic claudication Discharge Data Allergies Allergy/AdvReac Type Severity Reaction Status Date / Time pantoprazole [From Protonix] AdvReac Intermediate Nausea Verified 06/28/22 10:12 tramadol AdvReac Intermediate Nausea Verified 06/28/22 10:12 ibuprofen AdvReac Unknown Upset Verified 06/28/22 10:12 stomach NSAIDS (Non-Steroidal AdvReac Unknown "Conflicts Verified 06/28/22 10:12 Anti-Inflamma with heart condition" Consultations 06/28/22 16:14 Consult Hospitalist Routine Procedures Performed Operation Date: 06/28/22 11:35 Actual Procedures p L2-L5 Decompression and Fusion, Spinal Cord Monitoring(Not Applicable) - Nicholas Osborn DO p L3-L5 Removal Hardware, (Not Applicable) - Nicholas Osborn DO Ordered Studies 06/28/22 11:35 FL lumbar spine 2-3V Routine Hospital Course (1) Neurogenic claudication due to lumbar spinal stenosis: Patient underwent lumbar decompression fusion tolerated well was taken to orthopedic for postoperative. Postop day 1 he was up and ambulating progress postop day #2 on postop day 3 pain was well controlled SANTO drain decreased appropriately. Excellent strength testing. Subsequently discharged home. Discharge orders instructions from the chart for further review. Total Time Total Time Spent Total Time Spent (In Minutes): 20 minutes Discharge Plan Discharge Items Patient Disposition: Home - Self-Care Reason For Visit: Spinal stenosis, lumbar region without neurogenic Discharge Diagnosis: Lumbar spinal stenosis with neurogenic claudication Activity: As commented below Non-emergency contact: Primary Care Provider Call non-emergency contact if: you have any medication questions Follow-up/Referrals: Stalin Arrieta DO [Primary Care Provider] - Diet: Regular Addtl Attending Provider Instructions: ACTIVITY RECOMMENDATIONS: SELF CARE INSTRUCTIONS AFTER THORACIC/LUMBAR FUSIONS 1. You may walk to your tolerance. It is good exercise for your legs and back. Expect some back and intermittent leg aches and pains. 2. You may perform "counter-top" level activities (make a sandwich, jam with a project, etc.). 3. No bending or lifting of more than 10 pounds or back twisting of any nature (roll like a log when turning in bed). 4. You may ride in a car for 20-30 minutes at a time. No driving until after your first visit with your doctor. 5. Frequent changes of position and restricting sitting to 30 minutes at a time will help limit the amount of back spasms and stiffness you may experience. 6. You may discontinue the use of ambulatory aids (cane, crutches, etc.) once your strength and confidence allow. 7. You may fusing line inspector the shower and let water strike your incision when you arrive home at least once daily. Do not take a tub bath, sit in a hot tub or go into a swimming pool until after your first recheck in the office. SPECIAL CARE INSTRUCTIONS: VERY IMPORTANT TO READ AND REVIEW A. Your surgical incision has been closed with a cosmetic suture under the skin that will dissolve in about 6 weeks. In 14 days, you can use a pair of clean scissors and cut the suture that is left outside of the skin at the ends of your incision. 1. The small skin tapes can be removed 7 days after surgery if they have not fallen off by that point. 2. You may keep the wound open to air as much as possible to promote healing after post-op day number 5 unless told otherwise by your doctor. 3. If you think the wound looks like it is becoming infected (redness or worsening drainage) and/or you are experiencing fever, chill or worsening back pain and muscle spasms, contact the office so that we may evaluate you as soon as possible. B. Complications are uncommon, but please contact us if you have any signs or symptoms of: 1. wound infection (fever higher than 102.5 degrees F, redness, separation of wound, drainage, or increasing pain from the incision) 2. blood clots in legs (pain, swelling, redness and warmth in legs) 3. urinary tract infection (fever higher than 102.5 degrees F, burning upon urination or increased frequency of urination) 4. nerve problems (inability to walk on your toes or heels, numbness, loss of bowel or bladder control) 5. any other symptoms that concern you C. Please call the office at if you have any concerns or questions about your operation or recovery. D. No smoking! Smoking drastically decreases the chance of a solid fusion. E. Do not take any anti-inflammatory medications (Indocin, Advil, Motrin, Aspirin, Naprosyn, etc.) as these may inhibit the chance of a solid fusion. Tylenol is okay to take for pain. MANAGING PAIN AFTER SPINAL SURGERY 1. Narcotic medication is intended for short-term use and will be provided for surgical pain. Surgical pain usually lasts for a period of 4-6 weeks. Narcotic medication includes Percocet, Vicodin, Darvocet, Tylenol #3 or Lortab. 2. Longer-term pain is more appropriately treated with non-narcotic medication such as Tylenol ES. 3. Muscle spasm is not appropriately treated with narcotics. Muscle relaxers such as Soma, Flexeril or Skelaxin can be used along with Tylenol ES. 4. Remember that we all live with some "aches and pains". This is not unusual or uncommon after an injury or as we get older. a. Back pain is expected and may include muscle spasms for 4 to 6 weeks after surgery. The pain should gradually improve. If the pain worsens for no apparent reason, please contact the office. b. Intermittent leg pain may also be experienced and should not be concerned about unless it worsens for no apparent reason. If so, please contact the office. 5. We will provide appropriate medication within the normal guidelines of their prescribed use. We will also be very cautious and aware of potential abuse and extended duration of patients' medication needs. a. Pain medications are for your comfort and to assist with sleep and rest so that the tissue can heal. They are not provided in order to return to normal activity and should not be used through the day. To do so or worsening pain at night can result from ongoing tissue damage and development of tolerance to the prescribed medicine. 6. Please allow 2-3 days to process refills. Prescriptions will not be mailed but must be picked up at the office. FOLLOW UP VISIT: Keep your scheduled follow-up appointment. Any questions, please call the office at . Pending Studies at Discharge: No Stand-Alone Forms: [employer], Smoking Cessation Medications and DC Order Prescriptions: New oxycodone 5 mg tablet 5 mg PO Q6H PRN (Reason: pain, severe) Qty: 30 0RF cyanocobalamin (vitamin B-12) 1,000 mcg capsule 1,000 mcg PO DAILY Qty: 30 0RF Continued aspirin 81 mg Tablet,Delayed Release (Dr/Ec) 81 mg PO QAM Qty: 0 nitroglycerin [Nitrolingual] 400 mcg/spray [place],Non-Aerosol 400 mcg sublingual UD PRN (Reason: Chest Pain) Qty: 0 ranitidine HCl [Zantac Maximum Strength] 150 mg Tablet 150 mg PO BID Qty: 0 rosuvastatin [Crestor] 5 mg tablet 5 mg PO HS tamsulosin 0.4 mg Capsule 0.4 mg PO QAM Qty: 30 0RF amlodipine 2.5 mg Tablet 2.5 mg PO QAM acetaminophen 650 mg Tablet Extended Release 1,300 mg PO Q8H PRN (Reason: Pain) Label Comments: usually takes 1 in the morning and 1 at bedtime. duloxetine 60 mg Capsule,Delayed Release(Dr/Ec) 60 mg PO QAM metoprolol succinate 25 mg Capsule,Sprinkle,Er 24hr 37.5 mg PO HS oxycodone 10 mg Tablet 10 mg PO QID PRN (Reason: Pain) Discharge Orders: Discharge Order (Routine); Ordered 07/01/22 Ordered By: Nicholas Osborn Admission Data Admit Date/Time: 06/28/22 13:55 Attending Provider: Nicholas Osborn Admit Provider: Nicholas Osborn Primary Care Provider: Stalin Arrieta Other Providers: Shahzad Mendes ; Shree Dixon
--- NOTE | 2022-07-01 10:18 | Communication Note ---
Date of Service: July 01, 2022 Social visit, patient doing well, getting cleaned up. Moving bowels x 2, feeling great. Ready for his ride and to be discharge. No questions/concerns
== END 2022-07-01 11:41 | disposition home or self-care (01) | DRG 454 ==
LOC: ASU 09:49 → 3E 13:55

== ENCOUNTER 2024-09-04 17:37 | Observation (INO) ==
--- OUTSIDE RECORDS SUMMARY | 2024-09-04 17:42 | External Medical Summary | Continuity of Care Document ---
Author Name Unknown Organization [facility] [id number] [place] [phone] Care Team Providers Care Dental Service Technician Name Role Phone Donavan Rawls Primary Care Physician [phone] Encounter [facility] [id number] Date(s): 07/08/24 - 07/08/24 [facility] [address] Medical [facility] [address] [address] [phone] Encounter Diagnosis Benign prostatic hyperplasia without lower urinary tract symptoms(Final) - Hyperlipidemia, unspecified(Final) - Impaired fasting glucose(Final) - Discharge Disposition: Home or Self Care Attending Physician: DO Arrieta Franklin J Referring Physician: DO Arrieta Franklin J Allergies, Adverse Reactions, Alerts Substance Criticality Severity Reaction Reaction Severity Status Motrin gi discomfort Active Ultram Stomach pain/issues Active Protonix Unknown Active Zetia Unable to assess criticality Mild Pancreatitis Active traMADol muscle spasms Active Immunizations Given and Recorded Vaccine Date Status Refusal Reason pneumococcal 13-valent vaccine 06/19/19 Given tetanus toxoids-diphtheria, Td (Adult) 1 04/15/05 Recorded 1Result Comment: 2019-06-19: Historical information-source unspecified Medications Adacel (Tdap vaccine) intramuscular suspension Start: 07/08/24 9:46:00 AM EDT, 0.5 mL, IM, ONCE, Disp# 0.5 mL, Pharmacy: [facility] #[id number] Start Date: 07/08/24 Status: Ordered amLODIPine 2.5 mg oral tablet Start: 09/22/23 4:00:00 PM EST, 1 tab, PO, Daily, Disp# 90 tab, Refills: 3, Pharmacy: [id number] Start Date: 09/22/23 Status: Ordered aspirin 81 mg oral tablet Start: 08/09/17 11:10:00 AM EST, 1 tab, PO, Daily Start Date: 08/09/17 Status: Ordered famotidine 40 mg oral tablet Start: 06/20/24 10:02:00 AM EDT, 1 tab, PO, bid, Disp# 180 tab, Refills: 3, Pharmacy: [id number] Start Date: 06/20/24 Status: Ordered Metoprolol Succinate ER 25 mg oral tablet, extended release Start: 07/09/24 9:48:00 AM EDT, 0.5 tab, PO, Daily, Disp# 45 tab, Refills: 3, Note to Pharmacy: dose change, other Start Date: 07/09/24 Status: Ordered multivitamin Start: 06/28/21 9:54:00 AM EDT, 1 tab, PO, Daily Start Date: 06/28/21 Status: Ordered nitroglycerin 0.4 mg sublingual spray Start: 02/16/22 11:51:00 AM EDT, 1 spray, SL, q5min, Disp# 4 g, Refills: 1, PRN: as needed for chest pain, Pharmacy: [facility]/pharmacy #[id number] Start Date: 02/16/22 Stop Date: 04/17/22 Status: Ordered rosuvastatin 5 mg oral tablet Start: 09/26/23 9:57:00 AM EST, 1 tab, PO, qhs, Disp# 90 tab, Refills: 3, Pharmacy: [id number] Start Date: 09/26/23 Status: Ordered tamsulosin 0.4 mg oral capsule Start: 06/10/24 12:08:00 PM EDT, 1 cap, PO, Daily, Disp# 90 cap, Refills: 3, Pharmacy: [id number] Start Date: 06/10/24 Status: Ordered Problem List Condition Confirmation Course Effective Dates Status H ealth Status Informant Angioplasty balloon catheter, device Confirmed Active Back pain Confirmed Active BPH Confirmed Active CAD Confirmed Active Cubital tunnel syndrome on left Confirmed Active Diverticulosis Confirmed Active Left hand weakness Confirmed Active Left hip pain Confirmed Active Hx of diverticulitis of colon Confirmed Active History of pancreatitis 1 Confirmed Active Hyperlipidemia Confirmed Active HTN (hypertension) Confirmed Active Low back pain Confirmed Active Left hand paresthesia Confirmed Active Spinal stenosis NOS Confirmed Active Stable angina Confirmed Active H/O heart artery stent Confirmed Active Right ureteral stone Confirmed Active Weight disorder Confirmed Active 1MRCP at [facility] showed distal pancreas atrophy, inflammation, otherwise WNL Procedures Procedure Date Related Diagnosis Body Site Status CT of abdomen and pelvis 1 02/07/23 Completed Plain X-ray of lumbar spine 2 06/28/22 Completed Plain X-ray of lumbar spine 3 05/05/21 Completed X-ray tomography of pelvis a nd left hip 4 05/05/21 Completed Left shoulder x-ray 5 11/06/20 Com pleted Colonoscopy 6, 7 12/05/17 Complete d Upper GI endoscopy 8 12/05/17 Comp leted Coccyx X-ray 9 06/16/17 Completed X-ray of spine 10 06/16/17 Complet ed Cardiac catheterization 11 05/10/16 Completed Stent placement 2015 Completed Back 2014 Completed Cardiac catheterization 12 01/24/14 Completed Cardiac catheterization with angioplasty 1996 Completed Bilateral inguinal hernia repair Completed Complete removal of patella Completed Open treatment of ankle disl ocation, with or without percutaneous skeletal fixation; with repair or internal or external fixation Completed Release of carpal tunnel for nerve decompression Completed 1IMPRESSION: 1. There is an 11 mm calculus in the distal right ureter located just above the vesicoureteral junction. There is no upstream hydroureter or hydronephrosis. 2. Sigmoid diverticulosis without CT evidence of acute diverticulitis. 3. Advanced coronary artery calcification. Consider nonemergent cardiology follow-up. 4. Prostatomegaly with evidence of chronic bladder outlet obstruction. 5. Moderate hiatal hernia. 6. Lucency around the interpedicular screws in L2 and L5 as above suggests loosening. 7. Additional findings as above. 2Fluoroscopic assistanec provided for L2-L5 posterior decompression and fusion. 31. No acute bony abnormality identified. 2. Osteopenia with spondylotic and postoperative change as above. 41. No acute fracture within the pelvis or hips. 2. Moderate right hip osteoarthritis. Mild to moderate left hip osteoarthritis. 5Degenerative change. No acute fractures identified. 6One 3mm polyp in the rectum, removed with a cold biopsy forceps. Resected and retrieved Diverticulosis in the sigmoid colon The exam was otherwise normal The rectum, descending colon and ascending colon are normal. Biopsied The distal rectum and anal verge are normal on retroflexion view 7hyperplastic polyp 8Normal upper third of esophagus and middle third of esophagus LA grade b reflux esophagitis Small hiatal hernia Normal stomach and duodenum No specimens collected 9Impression: No fracture within the sacrum or coccyx 10Impression: 1. No acute bony abnormality is seen in the lumbar spine. 2. Osteopenia with postoperative and mild degenerative change as above. 11with stent placment to the LAD 12diagnostic Results Laboratory List Name Date Basic Metabolic Panel (BASIC METAB PANEL ) 07/08/24 Hemoglobin A1C (HEMOGLOBIN, A1C) 4 Lipid Profile (LIPOPROTEINS) 07/08/24 Prostate Specific Antigen (PSA, TOTAL) 1 Most recent to oldest [Reference Range]: 1 eGFR CKD-EPI [>60 mL/min/1.73 m2] 88 mL/ min/1.73 m2 1 (07/08/24 10:13 AM) Estimated Average Glucose 126 mg/dL 2 (07/08/24 10: AM) Non-HDL 117 mg/dL 3 (07/08/24 10:13 AM) PSA, Total [<6.51 ng/mL] 2.95 ng/mL (07/08/24 10:13 AM) Estimated CrCl 69.40 mL/min (07/08/24 12:27 PM) Anion Gap [5-14 mmol/L] 11 mmol/L (07/08/24 10:13 AM) BUN [7-20 mg/dL] 13 mg/dL (07/08/24 10:13 AM) Ca [8.4-10.2 mg/dL] 9.5 mg/dL (07/08/24 10:13 AM) Chol/HDL 5 (07/08/24 10:13 AM) Chol [125-200 mg/dL] 148 mg/dL (07/08/24 10:13 AM) Cl- [96-107 mmol/L] 103 mmol/L (07/08/24 10:13 AM) HCO3 [22-30 mmol/L] 26 mmol/L (07/08/24 10:13 AM) Cret [0.70-1.30 mg/dL] 0.93 mg/dL (07/08/24 10:13 AM) HbA1c [4.0-6.0 %] 6.0 % (07/08/24 10:13 AM) Glu [74-106 mg/dL] 107 mg/dL *HI* (07/08/24 10:13 AM) HDL [>35 mg/dL] 31 mg/dL *LOW* (07/08/24 10:13 AM) K [3.5-5.1 mmol/L] 4.3 mmol/L (07/08/24 10:13 AM) LDL Chol, Calculated [50-130 mg/dL] 82 m g/dL (07/08/24 10:13 AM) Na [137-145 mmol/L] 140 mmol/L (07/08/24 10:13 AM) TG [<200 mg/dL] 176 mg/dL (07/08/24 10:13 AM) 1Result Comment: Testing Performed By: Dept of Pathology [facility], [address] [place] [address], [place] [address] 2Result Comment: Testing Performed By: Dept of Pathology [facility], [address] [place] [address], [place] [address] 3Result Comment: Testing Performed By: Dept of Pathology [facility], [address] [place] [address], [place] [address] Social History Social History Type Response Tobacco Former smoker, Cigar ettes, Oral 1, 2 Smoking Status Never smoked cigaret zeinab Sex Sex Representation Male (finding) 1Pt stated that he quit chewing a few years ago. 2Former smoker; quit 25 to 30 years ago. Current oral tobacco users; 1 can every 4-5 days. Patient Care team information Care Team Personnel Name: MD Romel, Nicholas Ramirez Position: Physician - Sports Medicine [place] Member Role: Lifetime Relationship Address: [address] [address] [place] Name: DO Arteaga Jason D Position: Physician - Cardiology Member Role: Lifetime Relationship Address: [address] [place] [address] [place] Name: DO Sandoval Kristen M Position: Physician - Family Med Member Role: Lifetime Relationship Address: [address] [facility] [address] [place] [address] [place] Name: MD Rawls Christopher Position: Physician - Family Med Member Role: Primary Care Provider Address: [address] [facility] [address] [place] [address] [place] Name: MD Dinora, Sergio Neville Position: Physician - Sports Medicine [place] Member Role: Lifetime Relationship Address: [address] [facility] [address] [place] [address] [place] Care Team Related Persons Name: ERIN MAGUIRE Name: ERIN MAGUIRE
--- OUTSIDE RECORDS SUMMARY | 2024-09-04 17:42 | External Medical Summary | Continuity of Care Document ---
Author Name Unknown Organization [facility] [address] [facility] Address [address] [place], [place] [id number] Care Team Providers Care Cook Apprentice Pastry Name Role Phone Donavan Rawls Primary Care Physician [phone] Encounter [facility] [id number] Date(s): 07/09/24 - 07/09/24 [facility] [address] [facility] [address] [facility], [address] [place] [address] [phone] Encounter Diagnosis CAD(Discharge Diagnosis) - 07/09/24 Stent to Proximal LAD(Discharge Diagnosis) - 07/09/24 Hyperlipidemia(Discharge Diagnosis) - 07/09/24 HTN (hypertension)(Discharge Diagnosis) - 07/09/24 Discharge Disposition: Home or Self Care Attending Physician: DO Arteaga Jason D Allergies, Adverse Reactions, Alerts Substance Criticality Severity Reaction Reaction Severity Status Motrin gi discomfort Active Ultram Stomach pain/issues Active Protonix Unknown Active Zetia Unable to assess criticality Mild Pancreatitis Active traMADol muscle spasms Active Assessment and Plan Extracted from: Title:Cardiology Office Visit Note Author:DO Arteaga Jason D Date:07/09/24 1.CAD 2.Hyperlipidemia 3.Stent to Proximal LAD 4.HTN (hypertension) From my standpoint he is doing relatively well. Will reduce his Toprol further from 25 mg to 12-1/2 mg and see if this improves his fatigue we will have to watch that he does not get any anginal symptoms or worsening PVCs. His last LDL was in the 80s. Unfortunately he is intolerant of Zetia and is intolerant of higher doses of statin therapy. We did discuss PCSK9 Inhibitors and he has no interest in self injections. His blood pressure is well-controlled on his current medical regimen. For his statin muscle aches we discussed 200 mg of coenzyme every 10 and a small glass of tonic water before he goes to bed to see if that helps his symptoms. Will see him back in 6 months. I did review his echocardiogram from the summer and his LV function remains preserved. Immunizations Given and Recorded Vaccine Date Status Refusal Reason pneumococcal 13-valent vaccine 06/19/19 Given tetanus toxoids-diphtheria, Td (Adult) 1 04/15/05 Recorded 1Result Comment: 2019-06-19: Historical information-source unspecified Medications Adacel (Tdap vaccine) intramuscular suspension Start: 07/08/24 9:46:00 AM EDT, 0.5 mL, IM, ONCE, Disp# 0.5 mL, Pharmacy: [facility]/pharmacy #[id number] Start Date: 07/08/24 Status: Ordered amLODIPine 2.5 mg oral tablet Start: 09/22/23 4:00:00 PM EST, 1 tab, PO, Daily, Disp# 90 tab, Refills: 3, Pharmacy: [id number] Start Date: 09/22/23 Status: Ordered aspirin 81 mg oral tablet Start: 08/09/17 11:10:00 AM EST, 1 tab, PO, Daily Start Date: 08/09/17 Status: Ordered famotidine 40 mg oral tablet Start: 06/20/24 10:02:00 AM EDT, 1 tab, PO, bid, Disp# 180 tab, Refills: 3, Pharmacy: [id number] Start Date: 06/20/24 Status: Ordered Metoprolol Succinate [...] PRN: as needed for chest pain, Pharmacy: [facility] #[id number] Start Date: 02/16/22 Stop Date: 04/17/22 Status: Ordered rosuvastatin 5 mg oral tablet Start: 09/26/23 9:57:00 AM EST, 1 tab, PO, qhs, Disp# 90 tab, Refills: 3, Pharmacy: [id number] Start Date: 09/26/23 Status: Ordered tamsulosin 0.4 mg oral capsule Start: 06/10/24 12:08:00 PM EDT, 1 cap, PO, Daily, Disp# 90 cap, Refills: 3, Pharmacy: [id number] Start Date: 06/10/24 Status: Ordered Mental Status 07/09/24 Barriers to Learning one year None evide nt Mandatory Health Literacy Documentation Yes Health Literacy Communication Barriers N ever Primary Language Mexican Problem List Condition Confirmation Course Effective Dates [...] Active Weight disorder Confirmed Active 1MRCP at [facility] showed distal pancreas atrophy, inflammation, otherwise WNL Diagnosis Diagnosis Type Effective Dates Health Status Clinical Service Informant Stent to Proximal LAD Discharge Diagnosis 07/09/24 Hyperlipidemia Discharge Diagnosis 07/09/24 HTN (hypertension) Discharge Diagnosis 07/09/24 CAD Discharge Diagnosis 07/09/24 Procedures Procedure Date Related Diagnosis Body Site [...] Cardiac catheterization 11 05/10/16 Completed Stent placement 2016 Completed Back 2014 Completed Cardiac catheterization 12 [...] 11with stent placment to the LAD 12diagnostic Vital Signs Most recent to oldest [Reference Range]: 1 Patient Weight 74 kg (07/09/24 9:01 AM) Heart Rate 66 bpm (07/09/24 9:01 AM) Blood Pressure 116/66mmHg (07/09/24 9:01 AM) BP Location # 1 Right Arm (07/09/24 9:01 AM) Social History Social History Type Response Tobacco Former smoker, Cigar ettes, Oral 1, 2 Smoking Status Never smoked cigaret zienab Sex Sex Representation Male (finding) 1Pt stated that he quit chewing a few years ago. 2Former smoker; quit 25 to 30 years ago. Current oral tobacco users; 1 can every 4-5 days. Cardiology Outpatient Note * Fragin, DO, Fortino D: PERFORM Event Display: Cardiology Outpt Note Authored Date: [id number] Primary Care Provider MD Curly, Donavan Chief Complaint 4 mon f/u CAD chol PVCs History of Present Illness He denies any chest pain or chest pressure. He has some mild shortness of breath that he pushes himself. He does note with reducing his Toprol dose from 37-1/2 mg to 25 mg a day he has had improvement in his fatigue and his degree of dyspnea. He denies any palpitations or fluttering with a lower dose of beta- blockers. He is had no lower extremity edema. He denies any presyncope or syncope. He said no falls. He is tolerating low-dose rosuvastatin with some mild to moderate cramping that he is able to manage. As you remember he was intolerant of Zetia. Review of Systems PAST MEDICAL HISTORY: 1. Coronary artery disease status post angioplasty in 1996 of an unknown artery. 2. Cardiac catheterization 04/2016 at [facility] with angioplasty and stenting of a 60% proximal LAD lesion and a residual 80% D1 lesion in a very small first diagonal branch. 3. Normal biventricular size and function by echo03/2024 with mild to moderate aortic insufficiency. 4. PVCs. 5. Hernia repair. 6. Hyperlipidemia. 7. BPH. 8. Spinal stenosis status post back surgery in 2015. 9. Intolerance of Zetia (pancreatitis) and higher doses of Crestor Physical Exam Vitals & Measurements HR:66(Monitored) BP:116/66 SpO2:97% WT:74kg WT:74.000kg(Dosing) PHYSICAL EXAMINATION: He is awake, alert, oriented x3; he is in no acute distress. HEENT: 2+ carotid upstrokes, no evidence of carotid bruits. Jugular venous pressure appeared normal. His sclerae are anicteric. His hearing is normal. Lungs: Clear to auscultation bilaterally, no rales, rhonchi or wheezing. Heart: Regular rate and rhythm, no appreciable murmurs, rubs or gallops. Extremities: No clubbing, cyanosis or edema. Psychiatric: His affect appeared appropriate. Diagnostic Results Echo TransTHORacic TTE Complete Report Signatures Finalized by Dr. Fortino Arteaga MD on 03/28/2024 05:20 PM Summary 1. Normal left ventricular size and systolic function with no regional wall motion abnormalities. 2. Ejection fraction as calculated by Biplane Simpsons method is 65%. 3. No left ventricular hypertrophy. 4. Grade I diastolic dysfunction of the left ventricle (impaired relaxation pattern) with normal left atrial pressure (normal for age). 5. Normal right ventricular size and function. 6. Normal biatrial size. 7. Sclerotic, tricuspid aortic valve without stenosis. 8. Mild to moderate aortic insufficiency. 9. Mild tricuspid valve regurgitation. 10. Top normal estimated pulmonary artery pressures, estimated PASP is 33 mmHg. 11. Compared to the previous study performed 07/25/2019, there is nosignificant change. Assessment/Plan 1.CAD 2.Hyperlipidemia 3.Stent to Proximal LAD 4.HTN (hypertension) From my standpoint he is doing relatively well. Will reduce his Toprol further from 25 mg to 12-1/2 mg and see if this improves his fatigue we will have to watch that he does not get any anginal symptoms or worsening PVCs. His last LDL was in the 80s. Unfortunately he is intolerant of Zetia and is intolerant of higher doses of statin therapy. We did discuss PCSK9 Inhibitors and he has no interest in self injections. His blood pressure is well-controlled on his current medical regimen. For his statin muscle aches we discussed 200 mg of coenzyme every 10 and a small glass of tonic water before he goes to bed to see if that helps his symptoms. Will see him back in 6 months. I did review his echocardiogram from the summer and his LV function remains preserved. Problem List/Past Medical History Ongoing Angioplasty balloon catheter, device Back pain BPH CAD Cubital tunnel syndrome on left Diverticulosis H/O heart artery stent History of pancreatitis HTN (hypertension) Hx of diverticulitis of colon Hyperlipidemia Left hand paresthesia Left hand weakness Left hip pain Low back pain Right ureteral stone Spinal stenosis NOS Stable angina Weight disorder Resolved Tobacco user Procedure/Surgical History CT of abdomen and pelvis| Service Date: 3Plain X-ray of lumbar spine| Service Date: 06/28/2022X-ray tomography of pelvis and left hip| Service Date: 1Plain X-ray of lumbar spine| Service Date: 1Left shoulder x-ray| Service Date: 1Colonoscopy| Ser vice Date: 12/05/2017Upper GI endoscopy| Service Date: 12/05/2017X-ray of spine| Service Date: 06/16/2017Coccyx X-ray| Service Date: 06/16/2017Cardiac catheterization| Service Date: 05/10/2016Stent placement| Service Date: 2015Back| Service Date: 2014Cardiac catheterization| Service Date: 01/24/2014Cardiac catheterization with angioplasty| Service Date: 1996Bilateral inguinal hernia repairRelease of carpal tunnel for nerve decompressionOpen treatment of ankle dislocation, with or without percutaneous skeletal fixation; with repair or internal or external fixationComplete removal of patella Medications amLODIPine(amLODIPine 2.5 mg oral tablet), 1 tab, PO, Daily aspirin(aspirin 81 mg oral tablet), 81 mg= 1 tab, PO, Daily famotidine(famotidine 40 mg oral tablet), 1 tab, PO, bid metoprolol(Metoprolol Succinate ER 25 mg oral tablet, extended release), 12.5 mg= 0.5 tab, PO, Daily, 3 refills multivitamin, 1 tab, PO, Daily nitroglycerin(nitroglycerin 0.4 mg sublingual spray), 1 spray, SL, q5min, PRN, 1 refills rosuvastatin(rosuvastatin 5 mg oral tablet), 1 tab, PO, qhs tamsulosin(tamsulosin 0.4 mg oral capsule), 1 cap, PO, Daily tetanus/diphth/pertuss (Tdap) adult/adol(Adacel (Tdap vaccine) intramuscular suspension), 0.5 mL, IM, ONCE Allergies Zetia (Mild)Pancreatitis Motringi discomfort ProtonixUnknown UltramStomach pain/issues traMADolmuscle spasms Social History Smoking Status Never smoked cigarettes Substance Abuse - Denies Substance Abuse Tobacco - Denies Tobacco Use Use:Former smoker Type:Cigarettes, Oral - Comments: Pt stated that he quit chewing a few years ago. Former smoker; quit 25 to 30 years ago. Current oral tobacco users; 1 can every 4-5 days. Family History Arthritis: Mother. Cardiovascular disease: Father. Heart attack: Father. Heart disease: Father. High Blood Pressure: Mother. Osteoarthritis: Mother. Osteoporosis: Mother. 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 [facility] [place] [address] [facility] [address] [place] [address] JDF Patient Care team information Care Team Personnel Name: MD Romel, Nicholas Ramirez Position: Physician - Sports Medicine [place] Member Role: Lifetime Relationship Address: [address] [facility] [address] [place] [address] [place] Name: DO Arteaga Jason D Position: Physician - Cardiology Member Role: Lifetime Relationship Address: [address] [facility] [address] [place] [address] [place] Name: DO Sandoval Kristen M Position: Physician - Family Med Member Role: Lifetime Relationship Address: [address] [facility] [address] [place] [address] [place] Name: MD Rawls Christopher Position: Physician - Family Med Member Role: Primary Care Provider Address: [address] [facility] [address] [place] [address] [place] Name: MD Dinora, Sergio Neville Position: Physician - Sports Medicine [place] Member Role: Lifetime Relationship Address: [address] [facility] [address] [place] [address] [place] Care Team Related Persons Name: ERIN MAGUIRE Name: ERIN MAGUIRE"
--- OUTSIDE RECORDS SUMMARY | 2024-09-04 17:42 | External Medical Summary | Continuity of Care Document ---
Author Name Unknown Organization [facility] [id number] [address] [place] [id number] Care Team Providers Care Attending Urologist Name Role Phone Donavan Rawls Primary Care Physician [phone] Encounter [facility] [id number] Date(s): 07/08/24 - 07/08/24 [facility] [address] [facility] [address] [address] [phone] Encounter Diagnosis Preventative health care(Discharge Diagnosis) - 07/08/24 Acute diverticulitis(Discharge Diagnosis) - 07/08/24 Right ureteral stone(Discharge Diagnosis) - 07/08/24 Hx of diverticulitis of colon(Discharge Diagnosis) - 07/08/24 Enlarged prostate(Discharge Diagnosis) - 07/08/24 Leukocytosis(Discharge Diagnosis) - 07/08/24 Anemia(Discharge Diagnosis) - 07/08/24 Discharge Disposition: Home or Self Care Attending Physician: MD Rawls Christopher Allergies, Adverse Reactions, Alerts Substance Criticality Severity Reaction Reaction Severity Status Motrin gi discomfort Active Zetia Unable to assess criticality Mild Pancreatitis Active Ultram Stomach pain/issues Active Protonix Unknown Active traMADol muscle spasms Active Assessment and Plan Extracted from: Title:Office Visit Note - APSO Author:MD Alex, Donavan Date:07/08/24 1.Preventative health care Patient somewhatvaccine hesitant or at least prefers not to get vaccines. Patient quickly counseled on some vaccines including COVID vaccines (Novavaxcurrently has protein-derived version available), TDaP vaccines, shingles vaccine, etc. Rx'ed TDaP vaccine to pt, pt considering getting it. 2.Hx of diverticulitis of colon 3.Acute diverticulitis Subacute, improving Patient already finished his course of Augmentin (5 days) but did note some slight increased pain after finishing Abxcourse. Still has moments of LLQ pain. Patient counseled to slowly ramp up from current low fiber diet (5-10 g fiber/day) to high fiber diet (25-30 g/day) and that insoluble fiber is much better at preventing diverticulitis flare-ups than soluble fiber, so pt advised to Google example of this. 4.Right ureteral stone Subacute/chronic, asymptomatic CT-AP showed 9 mm r. distal ureter stone w/out hydronephrosis. Pt offered to have a urology referral but declined. Pt already on tamsulosin, 0.4 mg, daily, PO. Advised to continue to drink plenty of water and go to ED if he should develop right- sided pain. 5.Enlarged prostate Subacute/chronic, asymptomatic Patient already w/ labs ordered back in March 2024 due to this, a PSA. Pt encouraged to get the labs done before seeing Dr Arrieta in Sep 2024. Immunizations Given and Recorded Vaccine Date Status Refusal Reason pneumococcal 13-valent vaccine 06/19/19 Given tetanus toxoids-diphtheria, Td (Adult) 1 04/15/05 Recorded 1Result Comment: 2019-06-19: Historical information-source unspecified Medications Adacel (Tdap vaccine) intramuscular suspension Start: 07/08/24 9:46:00 AM EDT, 0.5 mL, IM, ONCE, Disp# 0.5 mL, Pharmacy: [id number] Start Date: 07/08/24 Status: Ordered amLODIPine 2.5 mg oral tablet Start: 09/22/23 4:00:00 PM EST, 1 tab, PO, Daily, Disp# 90 tab, Refills: 3, Pharmacy: [id number] Start Date: 09/22/23 Status: Ordered aspirin 81 mg oral tablet Start: 08/09/17 11:10:00 AM EST, 1 tab, PO, Daily Start Date: 08/09/17 Status: Ordered famotidine 40 mg oral tablet Start: 06/20/24 10:02:00 AM EDT, 1 tab, PO, bid, Disp# 180 tab, Refills: 3, Pharmacy: [id number] Start Date: 06/20/24 Status: Ordered Metoprolol Succinate [...] PRN: as needed for chest pain, Pharmacy: [id number] Start Date: 02/16/22 Stop Date: 04/17/22 Status: Ordered rosuvastatin 5 mg oral tablet Start: 09/26/23 9:57:00 AM EST, 1 tab, PO, qhs, Disp# 90 tab, Refills: 3, Pharmacy: [id number] Start Date: 09/26/23 Status: Ordered tamsulosin 0.4 mg oral capsule Start: 06/10/24 12:08:00 PM EDT, 1 cap, PO, Daily, Disp# 90 cap, Refills: 3, Pharmacy: [id number] Start Date: 06/10/24 Status: Ordered Mental Status 07/08/24 Barriers to Learning one year None evide nt Mandatory Health Literacy Documentation Yes Health Literacy Communication Barriers N ever Primary Language Portuguese Problem List Condition Confirmation Course Effective Dates [...] Active Weight disorder Confirmed Active 1MRCP at [facility] showed distal pancreas atrophy, inflammation, otherwise WNL Diagnosis Diagnosis Type Effective Dates Health Status Clinical Service Informant Acute diverticulitis Discharge Diagnosis 07/08/24 Non-Specified Enlarged prostate Discharge Diagnosis 07/08/24 Non-Specified Preventative health care Discharge Diagnosis 07/08/24 Non-Specified Hx of diverticulitis of colon Discharge Diagnosis 07/08/24 Non-Specified Right ureteral stone Discharge Diagnosis 07/08/24 Non-Specified Leukocytosis Discharge Diagnosis 07/08/24 Non-Specified Anemia Discharge Diagnosis 07/08/24 Non-Specified Procedures Procedure Date Related Diagnosis Body Site [...] to oldest [Reference Range]: 1 Patient Weight 75.5 kg (07/08/24 8:40 AM) Heart Rate 84 bpm (07/08/24 8:40 AM) Blood Pressure 120/84mmHg (07/08/24 8:40 AM) Cuff Pulse Pressure 36 mmHg (07/08/24 8:40 AM) Social History Social History Type Response Tobacco Former smoker, Cigar ettes, Oral 1, 2 Smoking Status Never smoked cigaret zeinab Sex Sex Representation Male (finding) 1Pt stated that he quit chewing a few years ago. 2Former smoker; quit 25 to 30 years ago. Current oral tobacco users; 1 can every 4-5 days. [facility] Outpt Note * MD Alex, Donavan: PERFORM DO Collins Allison B: MODIFY Event Display: FCM Outpt Note Authored Date: [id number] Assessment/Plan 1.Preventative health care Patient somewhatvaccine hesitant or at least prefers not to get vaccines. Patient quickly counseled on some vaccines including COVID vaccines (Novavaxcurrently has protein-derived version available), TDaP vaccines, shingles vaccine, etc. Rx'ed TDaP vaccine to pt, pt considering getting it. 2.Hx of diverticulitis of colon 3.Acute diverticulitis Subacute, improving Patient already finished his course of Augmentin (5 days) but did note some slight increased pain after finishing Abxcourse. Still has moments of LLQ pain. Patient counseled to slowly ramp up from current low fiber diet (5-10 g fiber/day) to high fiber diet (25-30 g/day) and that insoluble fiber is much better at preventing diverticulitis flare-ups than soluble fiber, so pt advised to Google example of this. 4.Right ureteral stone Subacute/chronic, asymptomatic CT-AP showed 9 mm r. distal ureter stone w/out hydronephrosis. Pt offered to have a urology referral but declined. Pt already on tamsulosin, 0.4 mg, daily, PO. Advised to continue to drink plenty of water and go to ED if he should develop right-sided pain. 5.Enlarged prostate Subacute/chronic, asymptomatic Patient already w/ labs ordered back in March 2024 due to this, a PSA. Pt encouraged to get the labsdone before seeing Dr Arrieta in Sep 2024. Attestation Pt seen and examined in concert with Dr. Johnson_, agree with history and physical as documentedabove. Plan reviewed in detail. Any corrections or additions are noted here - Agree with plan. Diverticulitis improving, but patient overdue for colonoscopy and has a history of GI issues. Colonoscopy to be ordered in 2-3 months, and follow up with GI. CAT scan had demonstrateddistal ureter stone without hydronephrosis. Patient did not wish to follow-up with urology at this time. Long session with the patient concerning stone size and possiblepassing. Warning as discussed. Enlarged prostate noted on CAT scan. PSA is pending. He declines urology follow-up. Repeat blood workfor CBC pending for elevated white blood cell count. Chief Complaint ER f/u for kidney stones, and diverticulitis History of Present Illness Patient is a 68 yo M w/ a PMHxof CAD-s/pcatheter balloon angioplasty, back pain, BPH, cubital tunnel syndrome (l.), diverticulosis, Hx ofpancreatitis, hyperlipidemia, low back pain, spinal stenosis, who's presenting today after being d/c'ed from [facility] for presumed diverticulitis in context of LLQ pain, leukocytosis. HPI - LLQ pain, burping, pain that seemed lower gastric area too - WBC, 18.8 - pt still w/ intermittent cramping left-sided abdominal pain, but no right- sided pain - CT w/out evidence of diverticulitis, only showed fat replacement of pancreas, 9 mm distal r. ureter stone w/out hydronephrosis, prostatomegaly,diverticulosis - urineketones, 3+ and urine protein, 1+ (likely secondary to fatty pancreas, s/p pancreatitis) continue to monitor A1C levels for development of diabetes Physical Exam Vitals & Measurements HR:84(Monitored) BP:120/84 SpO2:98% WT:75.5kg WT:75.500kg(Dosing) General: Alert and oriented, No acute distress HEENT: Normocephalic, atraumatic Cardiovascular: Normal rate, Regular rhythm, No murmur, No gallop. Respiratory: Lungs are clear to auscultation, Respirations are non-labored, Breath sounds are equal; no crackles orwheezes noted Gastrointestinal: Soft, Non-tender to palpation, Non-distended, Normal bowel sounds. Psych: Mood-affect congruence. Speech is of normal pace and content Problem List/Past Medical History Ongoing Angioplasty balloon catheter, device Back pain BPH CAD Cubital tunnel syndrome on left Diverticulosis H/O heart artery stent History of pancreatitis Hx of diverticulitis of colon Hyperlipidemia Left [...] mg oral tablet), 1 tab, PO, bid meloxicam(meloxicam 7.5 mg oral tablet), 1 tab, PO, bid, 3 refills metoprolol(Metoprolol Succinate ER 25 mg oral tablet, extended release), 1.5 tab, PO, Daily multivitamin, 1 tab, PO, Daily nitroglycerin(nitroglycerin 0.4 mg sublingual spray), 1 spray, SL, q5min, PRN, 1 refills ondansetron(ondansetron 4 mg oral tablet), 4 mg= 1 tab, PO, ONCE, PRN rosuvastatin(rosuvastatin 5 mg oral tablet), 1 tab, [...] Mother. Osteoporosis: Mother. Health Status Family Member(s) Immunizations Vaccine Date Status pneumococcal 13-valent vaccine 06/19/2019 Given tetanus toxoids-diphtheria, Td (Adult) 04/15/2005 Recorded Comments : 2019-06-19: Historical information-source unspecified Recommendations Health Maintenance Pending(in the next year) OverDue Adult Influenza Vaccine due03/10/24and every 1year Due Adult COVID-19 Vaccination due07/08/24Unknown Frequency Adult Social Determinants of Health Screening due07/08/24Unknown Frequency Adult Tdap/Td Vaccine due07/08/24Unknown Frequency Hepatitis C Screening due07/08/24One-time only Medicare Annual Wellness Visit due07/08/24and every 1year Pneumococcal Vaccine Older Adults due07/08/24One-time only Shingles Vaccine due07/08/24One-time only Satisfied(in the past 1 year) Satisfied Body Mass Index on04/03/24.Satisfied by KEVIN Ryan [place] Lipid Screening on07/08/24.Satisfied by Contributor_system, Control4 Electronic Signature on File Electronically Reviewed/Signed by: Donavan Johnson MD Author Signature Dt/Tm:07/08/2024 01:42 PM Resident Department of Family Medicine Electronically Reviewed/Signed by: DO Shahram Pinedaignjosé miguel Signature Dt/Tm: 07/08/2024 02:15 PM Department of Family Medicine CM Patient Care team information Care Team Personnel Name: MD Romel, Nicholas Ramirez Position: Physician - Sports Medicine [place] Member Role: Lifetime Relationship Address: [address] [facility] [address] [place] [address] [place] Name: DO Arteaga Jason D Position: Physician - Cardiology Member Role: Lifetime Relationship Address: [address] [facility] [address] [place] [address] [place] Name: DO Sandoval Kristen M Position: Physician - Family Med Member Role: Lifetime Relationship Address: [address] [facility] [address] [place] [address] [place] Name: MD Rawls Christopher Position: Physician - Family Med Member Role: Primary Care Provider Address: [address] [facility] [address] [place] [address] [place] Name: MD Dinora, Sergio Neville Position: Physician - Sports Medicine [place] Member Role: Lifetime Relationship Address: [address] [facility] [address] [place] [address] [place] Care Team Related Persons Name: ERIN MAGUIRE Name: ERIN MAGUIRE"
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
--- NOTE | 2024-09-04 18:08 | XRay Report ---
EXAM: Radiograph of the Chest 1 View INDICATION: Abdominal pain. TECHNIQUE: Frontal view of the chest. COMPARISON: 06/07/2022 FINDINGS: Lungs and pleural spaces: Mild interstitial scarring present. No consolidation or pulmonary edema. No pleural effusion or pneumothorax. Heart: Shape and configuration within normal limits allowing for technique. Mediastinum: Small hiatal hernia noted. Bones/joints: No fracture, erosion or dislocation. Soft tissues: No abnormality noted. No radiopaque foreign body noted. Upper abdomen: No free air subjacent to the diaphragm. IMPRESSION: Small hiatal hernia noted. No acute cardiopulmonary disease noted. ACT 112: Negative or not required by law. Electronically signed by Ave Rubin 09-04-2024 6:07 PM
[2024-09-04] MEDS: ONDANSETRON INJ 2 MG/ML 2 ML VIAL IV STA (18:24)
[2024-09-04] MEDS: MoRPHine SULFATE 4 MG/ML 1 ML CARP\\VIAL IV PRN (18:24)
[2024-09-04 18:28] LABS: iSTAT Creatinine 0.7 mg/dl (0.6-1.3); iSTAT Hemoglobin 12.9 g/dl (14.0-18.0); iSTAT Ionized Calcium 1.13 mmol/l (1.12-1.32); iSTAT Potassium 3.9 mmol/L (3.3-5.0)
[2024-09-04 18:32] LABS: Basophils # (auto) 0.07 K/uL (0.00-0.20); Basophils % (auto) 0.6 %; Eosinophils # (auto) 0.12 K/uL (0.00-0.50); Hematocrit (blood only) 36.2 % (42.0-52.0); Hemoglobin 12.1 g/dl (14.0-18.0); Immature Granulocytes # (auto) 0.05 K/uL (0.01-0.20); Immature Granulocytes % (auto) 0.4 %; Lymphocytes # (auto) 0.79 K/uL (1.20-3.40); Lymphocytes % (auto) 6.4 %; Mean Corpuscular Hemoglobin 29.2 pg (25.0-34.0); Mean Corpuscular Hgb Conc 33.4 g/dL (32.0-36.0); Mean Corpuscular Volume 87.2 fL (80.0-100.0); Mean Platelet Volume 9.1 fL (9.4-12.4); Monocytes # (auto) 0.71 K/uL (0.11-0.59); Monocytes % (auto) 5.7 %; Neutrophils # (auto) 10.61 K/uL (1.40-6.50); Neutrophils % (auto) 85.9 %; Platelet Count 282 K/uL (130-400); RDW Coefficient of Variation 12.2 % (11.5-14.5); RDW Standard Deviation 39.2 fL (36.4-46.3); Red Blood Count 4.15 M/uL (4.70-6.10); White Blood Count 12.35 K/ul (4.8-10.8)
[2024-09-04 18:39] LABS: Appearance Urine Clear (Clear); Bilirubin Urine Negative (Negative); Blood Urine Negative (Negative); Color Urine Yellow; Glucose Urine UA Negative (Negative); Ketones Urine Trace (Negative); Leukocyte Esterase Urine Negative (Negative); Nitrite Urine Negative (Negative); Protein Urine Negative (Negative); Specific Gravity Urine 1.019 (1.000-1.030); Urobilinogen Urine Negative (Negative); pH Urine 5.5 (4.5-7.5)
[2024-09-04 18:45] LABS: Albumin Globulin Ratio 1.4 (0.9-2); Albumin Level 4.6 gm/dl (3.4-5.0); BUN Creatinine Ratio 21.5 (10-20); Bilirubin,Total 0.5 mg/dl (0.2-1.0); Calcium 9.2 mg/dl (8.6-10.3); Creatinine Clr Calc Pharmacy 84.2 ml/min; Globulin 3.4 gm/dl (2.5-4.0); Potassium 3.8 mmol/L (3.5-5.1)
[2024-09-04] MEDS: OPTIRAY 320 100ml IV ONE (19:02)
[2024-09-04] MEDS: HYDROmorphone INJ 1 MG/ML SYRINGE IV STA ×2 (19:57→22:02)
[2024-09-04] MEDS: FAMOTIDINE 20MG IV PUSH 20 MG/5 ML SYR IV STA (22:02)
[2024-09-04] MEDS: PANTOprazole 40 MG/10 ML SYR IV ONE (22:13)
--- NOTE | 2024-09-04 22:16 | CT Scan Report ---
Exam(s): CT ABDOMEN + PELVIS With Contrast IV Amt: 93 ml optiray 320 EXAM: CT Abdomen and Pelvis With Intravenous Contrast CLINICAL HISTORY: Reason for exam: llq. TECHNIQUE: Axial computed tomography images of the abdomen and pelvis with intravenous contrast. Automated exposure control was utilized for the study. A dose lowering technique was utilized adhering to the principles of ALARA. CONTRAST: Patient received 93 ml optiray 320 of IV contrast COMPARISON: 06/29/2024 FINDINGS: Lung bases: Unremarkable. No mass. No consolidation. Mediastinum: Moderate size esophageal hiatal hernia. ABDOMEN: Liver: Unremarkable. No mass. Gallbladder and bile ducts: Unremarkable. No calcified stones. No ductal dilation. Pancreas: Fatty atrophy of the pancreas. No ductal dilation. Spleen: Unremarkable. No splenomegaly. Adrenals: Unremarkable. No mass. Kidneys and ureters: Unremarkable. No solid mass. No hydronephrosis. Stomach and bowel: Diverticulosis without evidence of diverticulitis. No obstruction. PELVIS: Appendix: No findings to suggest acute appendicitis. Bladder: Unremarkable. No mass. Reproductive: Enlarged prostate. ABDOMEN and PELVIS: Intraperitoneal space: Unremarkable. No free air. No significant fluid collection. Bones/joints: Postoperative changes L2-L5 interbody fusion. No acute fracture. No dislocation. Soft tissues: Unremarkable. Vasculature: Unremarkable. No abdominal aortic aneurysm. Lymph nodes: Unremarkable. No enlarged lymph nodes. IMPRESSION: Moderate size esophageal hiatal hernia. Exam negative for acute intra-abdominal pathology. Electronically signed by: James Peters MD 09/04/24 22:15 PM
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
[2024-09-05] MEDS ORDERED: ONDANSETRON INJ 2 MG/ML 2 ML VIAL IV PRN (00:03)
[2024-09-05] MEDS ORDERED: DOCUSATE SODIUM 100 MG CAP PO PRN (00:03)
[2024-09-05] MEDS ORDERED: HYDROmorphone INJ 0.5 MG/0.5 ML SYR IV PRN (00:03)
[2024-09-05] MEDS: HYDROmorphone INJ 0.5 MG/0.5 ML SYR IV PRN (00:29)
[2024-09-05] MEDS: SODIUM CHLORIDE 0.9% 1,000 ML IV SCH (00:45)
[2024-09-05 07:33] LABS: Hematocrit (blood only) 33.2 % (42.0-52.0); Hemoglobin 11.1 g/dl (14.0-18.0); Mean Corpuscular Hemoglobin 29.6 pg (25.0-34.0); Mean Corpuscular Hgb Conc 33.4 g/dL (32.0-36.0); Mean Corpuscular Volume 88.5 fL (80.0-100.0); Platelet Count 244 K/uL (130-400); RDW Coefficient of Variation 12.2 % (11.5-14.5); RDW Standard Deviation 39.6 fL (36.4-46.3); Red Blood Count 3.75 M/uL (4.70-6.10); White Blood Count 13.21 K/ul (4.8-10.8)
[2024-09-05 07:46] LABS: Albumin Level 3.8 gm/dl (3.4-5.0); BUN Creatinine Ratio 21.9 (10-20); Bilirubin Direct 0.1 mg/dl (0-0.2); Bilirubin,Total 0.7 mg/dl (0.2-1.0); Calcium 8.7 mg/dl (8.6-10.3); Creatinine Clr Calc Pharmacy 91.1 ml/min; Potassium 3.9 mmol/L (3.5-5.1); Total Protein 6.8 gm/dl (6.0-8.3)
[2024-09-05] MEDS: ASPIRIN 81 MG ECTAB PO SCH (08:52)
[2024-09-05] MEDS: TAMSULOSIN HCL 0.4 MG CAP PO SCH (08:52)
[2024-09-05] MEDS: FAMOTIDINE 40 MG TABLET PO SCH (08:52)
[2024-09-05] MEDS: amLODIPine BESYLATE 5 MG TAB PO SCH (08:53)
[2024-09-05] MEDS: ACETAMINOPHEN 500 MG TAB PO SCH (09:43)
--- NOTE | 2024-09-05 11:01 | Electrocardiogram Report ---
Test Reason : Blood Pressure : */* mmHG Vent. Rate : 60 BPM Atrial Rate : 60 BPM P-R Int : 150 ms QRS Dur : 86 ms QT Int : 422 ms P-R-T Axes : 35 18 29 degrees QTcB Int : 422 ms Normal sinus rhythm Normal ECG When compared with ECG of 29-Jun-2024 16:19, No significant change was found Confirmed by Donavan Ortiz ([id number]) on 09/05/2024 11:00:49 AM Referred By: Confirmed By: Donavan Ortiz
--- NOTE | 2024-09-05 15:18 | Hospitalist Progress Note ---
Date of Service September 05, 2024 Assessment & Plan (1) Pancreatitis: Plan: 68yo male with history of HTN, HLP and GERD presenting with lower abdominal pain. Patient with colonoscopy with polyp removal performed 2 days ago. Etiology unclear of patient's pain but does meet pancreatitis criteria w/ elevated lipase on admission and abdominal pain. CT of the abdomen as above with known hiatal hernia. Lipase is elevated at 250 on admission, recheck 09/05 revealed lipase return to WNL at 67 CBC with mild leukocytosis of 12.31, continue to trend hgb 11.1 if leukocytosis continues to rise, consider antibiotic for infectious etiology of pain. CMP w/ improvement of sodium to 133, stable LFTs, normal TB Full liquid diet, can likely advance 09/06 if pain controlled Pain control w/ scheduled Tylenol and prn Dilaudid after patient resumes low fat diet, transition to PO oxycodone if needed IVF x 3 bags zofran prn nausea Repeat CBC, CMP in AM Plan Chronic conditions HTN: continue amlodipine and metoprolol GERD: continue pepcid BID Ppx - low risk for VTE, SCD's/encourage ambulation Code - Full Dispo - Admit to medical Updated at bedside 09/05 Admission and Anticipated Discharge Date Admission Date: September 04, 2024 Subjective Patient seen and examined this morning. patient reports experiencing lower abdominal pain starting on 09/03 and it persisting throughout 09/04 which was what led to him going to the ER. He reported the pain an 8/10. States the IV Diluadid was not helping it for long periods of time. He would feel some relief for about 2 hours and then the pain would pick back up. Upon re-evaluation this afternoon, patient ate jello and soup broth for lunch. he tolerated this well and was able to walk the halls. He felt his pain improved after eating and rated it a 6/10. Denied CP or SOB. Physical Exam Constitutional: WD/WN, vitals as above Respiratory: normal respiratory effort, lungs clear to auscultation Cardiovascular: RRR, no murmur, no edema Gastrointestinal (Abdomen): +BS, generalized tenderness to palpation Results & Data Results & Data Vital Signs (Past 12 Hours) Vital Signs Temp Pulse Resp BP Pulse Ox O2 Del Method 09/05/24 07:29 36.5 C 76 18 120/73 93 Room Air PG Care Time/CCT Total # of Minutes Spent Total Time Spent with Patient: Total time spent is greater than 50% in coordination of care (as documented) at patient's floor/unit and/or counseling patient: Coding Level of Care Code 71578 SUB INP/OBS CARE 2/35MIN Diagnoses Pancreatitis K85.90
[2024-09-05] MEDS: METOPROLOL SUCC 50MG EXT REL TAB PO SCH (20:22)
[2024-09-06 06:48] LABS: Hematocrit (blood only) 29.5 % (42.0-52.0); Hemoglobin 10.1 g/dl (14.0-18.0); Mean Corpuscular Hemoglobin 30.2 pg (25.0-34.0); Mean Corpuscular Hgb Conc 34.2 g/dL (32.0-36.0); Mean Corpuscular Volume 88.3 fL (80.0-100.0); Mean Platelet Volume 9.7 fL (9.4-12.4); Platelet Count 221 K/uL (130-400); RDW Coefficient of Variation 12.4 % (11.5-14.5); Red Blood Count 3.34 M/uL (4.70-6.10); White Blood Count 19.78 K/ul (4.8-10.8)
[2024-09-06 07:11] LABS: Albumin Globulin Ratio 1.2 (0.9-2); Albumin Level 3.4 gm/dl (3.4-5.0); Bilirubin,Total 0.7 mg/dl (0.2-1.0); C Reactive Protein 19.14 mg/dl (0-0.5); Calcium 8.4 mg/dl (8.6-10.3); Creatinine Clr Calc Pharmacy 88.7 ml/min; Globulin 2.8 gm/dl (2.5-4.0); Potassium 3.6 mmol/L (3.5-5.1); Total Protein 6.2 gm/dl (6.0-8.3)
[2024-09-06] MEDS ORDERED: AMPICILLIN/SULBACTAM SOD 3,000 MG/100 ML BAG IV SCH (09:00)
[2024-09-06] MEDS: PIPERACILLIN/TAZOBACTAM 4.5 GM/100 ML BAG IV ONE (09:48)
[2024-09-06] MEDS: PIPERACILLIN/TAZOBACTAM 4.5 GM/100 ML BAG IV SCH (14:16)
--- NOTE | 2024-09-06 16:08 | Hospitalist Progress Note ---
Date of Service September 06, 2024 Assessment & Plan (1) Abdominal pain: Plan: 68yo male with history of HTN, HLP and GERD presenting with lower abdominal pain. Patient with colonoscopy with polyp removal performed 2 days ago. Given pain has localized in LLQ region and rising WBC, concern for diverticulitis. Started IV Zosyn q8h 09/06 CT of the abdomen showing known esophageal hiatal hernia. Lipase is elevated at 250 on admission CBC with rising leukocytosis of 19.78, continue to trend hgb 10.1 CMP w/ improvement of sodium to 135, stable LFTs, normal TB CRP elevated at 19.14, will trend Procalcitonin 0.25 Lipase decreased to 12. Low fiber diet Pain control w/ scheduled Tylenol and prn Dilaudid zofran prn nausea Repeat CBC, CMP, CRP in AM Plan Chronic conditions HTN: continue amlodipine and metoprolol GERD: continue pepcid BID Ppx - low risk for VTE, SCD's/encourage ambulation Code - Full Dispo - Admit to medical Updated at bedside 09/06 Admission and Anticipated Discharge Date Admission Date: September 04, 2024 Subjective Patient seen and examined this morning. present at bedside. Patient reports his pain is doing better today. Reports he was able to tolerate full liquids and is hoping for solid foods today. He states pain is mostly localized in LLQ region. denies NV. Denies passing gas but is burping. He is hopeful that when he eats more he will pass gas and eventually have BM. He is walking the halls. Physical Exam Constitutional: WD/WN, vitals as above Eyes: PERRL, conjunctivae normal, anicteric sclerae Respiratory: normal respiratory effort, lungs clear to auscultation Cardiovascular: RRR, no murmur, no edema Gastrointestinal (Abdomen): +BS, tenderness to LLQ on palpation, sof t Results & Data Results & Data Vital Signs (Past 12 Hours) Vital Signs Temp Pulse Resp BP Pulse Ox O2 Del Method 09/06/24 15:18 37.5 C 83 18 111/65 94 Room Air 09/06/24 07:52 37.2 C 65 18 116/66 95 Room Air PG Care Time/CCT Total # of Minutes Spent Total Time Spent with Patient: Total time spent is greater than 50% in coordination of care (as documented) at patient's floor/unit and/or counseling patient: Coding Level of Care Code 62578 SUB INP/OBS CARE 2/35MIN Diagnoses Left lower quadrant abdominal pain R10.32 Abdominal location: left lower quadrant (1) Abdominal pain Abdominal location: left lower quadrant Qualified Code(s): R10.32 - Left lower quadrant pain
[2024-09-06 22:29] VITALS: RESP 16
[2024-09-07 05:59] LABS: Basophils # (auto) 0.06 K/uL (0.00-0.20); Basophils % (auto) 0.4 %; Eosinophils % (auto) 2.1 %; Hematocrit (blood only) 30.3 % (42.0-52.0); Hemoglobin 10.1 g/dl (14.0-18.0); Immature Granulocytes # (auto) 0.09 K/uL (0.01-0.20); Immature Granulocytes % (auto) 0.6 %; Lymphocytes # (auto) 0.67 K/uL (1.20-3.40); Lymphocytes % (auto) 4.6 %; Mean Corpuscular Hemoglobin 29.7 pg (25.0-34.0); Mean Corpuscular Hgb Conc 33.3 g/dL (32.0-36.0); Mean Corpuscular Volume 89.1 fL (80.0-100.0); Mean Platelet Volume 9.4 fL (9.4-12.4); Monocytes # (auto) 1.45 K/uL (0.11-0.59); Neutrophils # (auto) 11.94 K/uL (1.40-6.50); Neutrophils % (auto) 82.3 %; Platelet Count 237 K/uL (130-400); RDW Coefficient of Variation 12.5 % (11.5-14.5); RDW Standard Deviation 40.5 fL (36.4-46.3); White Blood Count 14.51 K/ul (4.8-10.8)
[2024-09-07 06:19] LABS: Albumin Globulin Ratio 1.1 (0.9-2); Albumin Level 3.4 gm/dl (3.4-5.0); BUN Creatinine Ratio 12.8 (10-20); Bilirubin,Total 0.7 mg/dl (0.2-1.0); C Reactive Protein 25.88 mg/dl (0-0.5); Calcium 8.7 mg/dl (8.6-10.3); Creatinine Clr Calc Pharmacy 77.3 ml/min; Globulin 3.2 gm/dl (2.5-4.0); Potassium 3.8 mmol/L (3.5-5.1); Total Protein 6.6 gm/dl (6.0-8.3)
[2024-09-07 07:07] VITALS: BP 117/74; TEMP 98.4; O2SAT 95
[2024-09-07 11:14] VITALS: PULSE 65
--- NOTE | 2024-09-07 11:15 | Discharge Summary ---
Discharge Summary Date of Service September 07, 2024 Principal Dx & Hospital Course #1 = Principal Diagnosis (1) Abdominal pain: 68yo male with history of HTN, HLP and GERD presenting with lower abdominal pain. Patient with colonoscopy with polyp removal performed 09/02 Pain localized in LLQ - likely diverticulitis despite negative imaging. Patient symptoms improved after initiation of antibiotics. CT of the abdomen showing known esophageal hiatal hernia. Lipase is elevated at 250 on admission then shortly returned to WNL on 09/05 CBC with improvement of leukocytosis. CMP with stable renal/liver/electrolyte function CRP elevated at 25.88, given improvement of WBC and symptoms, likely lagging behind. Procalcitonin 0.25 Lipase decreased to 12. Low fiber diet x 4-6 weeks on discharge. Treated with Zosyn inpatient and transitioned to Augmentin for additional 9 days on discharge. First dose this evening 09/07. Pain control with scheduled Tylenol and PO oxycodone for breakthrough pain on discharge. Use Stool softener vs Miralax for constipation at home. Defer further lab work to PCP at follow up visit. Plan Chronic conditions HTN: continue amlodipine and metoprolol GERD: continue pepcid BID Updated at bedside 09/07 with discharge instructions. Admission HPI Per Admitting Provider Shamir Busby is a pleasant 68yo male with history of HTN, HLP, CAD and GERD presenting with abdominal pain. Patient had a colonoscopy performed on 09/02/24 with polyp x 1 removed. On 09/03/24 he developed bandlike lower abdominal discomfort which has been progressively worsening over the last two days. Pain is severe and more constant, sometimes worse in the LLQ. He has some associated nausea. Poor appetite - has not eaten anything since having a late breakfast today around 10:00. He reports the pain does become more intense after eating or drinking anything. He reports pain moving into his upper chest at times as well. Patient had a small bowel movement today. He is passing flatus. No additional complaints at this time. He did have a similar presentation in 04/2019 and was diagnosed with acute pancreatitis involving the pancreatic tail. He had an MRCP performed at that time which was unremarkable and reports having an ERCP at an outside facility which was also unremarkable. Reports his pain today is very similar to the pain he experienced with his prior acute pancreatitis. ER Course: Pepcid Zofran 4mg IV Dilaudid 1mg IV x 2.5 doses Morphine 4mg IV x 2 Zofran Discharge Exam Constitutional WD/WN, vitals as above Eyes PERRL, conjunctivae normal, anicteric sclerae Respiratory breathing unlabored Cardiovascular well perfused Psychiatric A+Ox3, euthymic affect Discharge Plan Discharge Items Patient Disposition: Home - Self-Care Reason For Visit: ABDOMINAL PAIN Discharge Diagnosis: Diverticulitis Activity: Resume your previous activity Non-emergency contact: Primary Care Provider Call non-emergency contact if: you have any medication questions, your symptoms worsen, your pain is not controlled and you have a fever Follow-up/Referrals: Stalin Arrieta, [Primary Care Provider] - Diet: Low Fiber Addtl Attending Provider Instructions: Mr. Busby, You were recently hospitalized for abdominal pain. Your imaging was negative but symptoms and lab work was consistent with diverticulitis. You were treated with antibiotics and responded well. Please see recommendations below regarding your discharge. 1. Please take Augmentin for the next 9 days. Last dose will be 09/15/2024 Your first dose will be this evening 09/07 2. Please take antibiotics with food to avoid GI upset. 3. Please remain on a low fiber diet for 4-6 weeks following this episode. Following that time period, please go on a high fiber diet. 4. Please continue to take Tylenol 1000mg every 8 hours scheduled for your pain until it subsides. ~the next 2-3 days. 5. You may use Oxycodone 5mg every 6 hours for breakthrough pain if needed. (8, 9, 10 on pain scale). 6. Please use a stool softener or Miralax for 2-3 days to aide with your bowel movements while on pain medication. 7. You may resume the remainder of your outpatient medications as previously prescribed. 8. Please follow up with your PCP within 1-2 weeks of discharge. - They will order further lab work for you if necessary. If you develop any worsening pain, fever, chills, chest pain, or shortness of breath please report to the ER for further care. Sincerely, Suzan Claudio PA-C Pending Studies at Discharge: No Stand-Alone Forms: My [employer], Smoking Cessation Medications and DC Order Prescriptions: New amoxicillin-pot clavulanate 875-125 mg tablet 1 tab PO BID Qty: 17 0RF oxycodone 5 mg tablet 5 mg PO Q6H PRN (Reason: pain (scale score 8-10)) Qty: 5 0RF Continued aspirin 81 mg Tablet,Delayed Release (Dr/Ec) 81 mg PO QAM Qty: 0 nitroglycerin [Nitrolingual] 400 mcg/spray [place]ard,Non-Aerosol 400 mcg sublingual UD PRN (Reason: Chest Pain) Qty: 0 tamsulosin 0.4 mg Capsule 0.4 mg PO QAM Qty: 30 0RF amlodipine 2.5 mg Tablet 2.5 mg PO QAM acetaminophen 650 mg Tablet Extended Release 1,300 mg PO Q8H PRN (Reason: Pain) Patient Comments: usually takes 1 in the morning and 1 at bedtime. metoprolol succinate 25 mg Capsule,Sprinkle,Er 24hr 50 mg PO HS famotidine 40 mg tablet 40 mg PO BID meloxicam 7.5 mg tablet 7.5 mg PO BID PRN (Reason: Pain) rosuvastatin 5 mg tablet 2.5 mg PO DAILY Discharge Orders: Discharge Order (Routine); Ordered 09/07/24 Ordered By: Suzan Bhardwaj/Other Patient Handouts: Diverticulitis Dc Admission Data Admit Date/Time: 09/04/24 22:31 Attending Provider: Rodrigo Tam Admit Provider: Indira Gross Primary Care Provider: Stalin Arrieta Other Providers: Indira Gross Hospital Stay Data Consultations 09/04/24 22:23 ED Decision to Admit Stat Diagnostic Imagining Performed 09/04/24 18:20 CT abd pelvis IV con only Stat Pending Results Patient Have Any Pending Studies at Discharge: No Discharge Instructions Given to Patient (Per Discharging Provider) Ko Varela were recently hospitalized for abdominal pain. Your imaging was negative but symptoms and lab work was consistent with diverticulitis. You were treated with antibiotics and responded well. Please see recommendations below regarding your discharge. 1. Please take Augmentin for the next 9 days. Last dose will be 09/15/2024 Your first dose will be this evening 09/07 2. Please take antibiotics with food to avoid GI upset. 3. Please remain on a low fiber diet for 4-6 weeks following this episode. Following that time period, please go on a high fiber diet. 4. Please continue to take Tylenol 1000mg every 8 hours scheduled for your pain until it subsides. ~the next 2-3 days. 5. You may use Oxycodone 5mg every 6 hours for breakthrough pain if needed. (8, 9, 10 on pain scale). 6. Please use a stool softener or Miralax for 2-3 days to aide with your bowel movements while on pain medication. 7. You may resume the remainder of your outpatient medications as previously prescribed. 8. Please follow up with your PCP within 1-2 weeks of discharge. - They will order further lab work for you if necessary. If you develop any worsening pain, fever, chills, chest pain, or shortness of breath please report to the ER for further care. Sincerely, Suzan Claudio PA-C Total Time Total Time Spent Total Time Spent (In Minutes): 40 Total Time Includes: Examination of the Patient, Discharge Planning, Medication Reconciliation and Communication With Other Providers Coding Level of Care Code 62042 INP/OBS DISCH >30 MIN Diagnoses Left lower quadrant abdominal pain R10.32 Abdominal location: left lower quadrant
[2024-09-07] MEDS: oxyCODONE HCL IR 5 MG TAB (IMMEDIATE RELEASE) PO STA (11:32)
== END 2024-09-07 11:56 | disposition home or self-care (01) | DRG 392 ==
LOC: ED 17:37 → INTOOBSV 22:31 → 3N 22:31 → SUATTDRO 22:31 → 3N 23:29